=== PATIENT | female | born 1955 | race Caucasian/White ===

== ENCOUNTER 2019-12-08 10:54 | Outpatient (CLI) | payer MEDICARE, SELFPAY ==
[2019-12-08 12:16] LABS: Add Urine Microscopic? NO; Appearance Urine Clear (Clear); Bilirubin Urine Negative (Negative); Blood Urine Negative (Negative); Color Urine Colorless (Yellow); Glucose Urine UA Negative (Negative); Ketones Urine Negative (Negative); Leukocyte Esterase Ur Negative LEU/UL (NEGATIVE); Nitrate Urine Negative (Negative); Protein Urine Negative (Negative); Specific Grav Ur 1.005 (1.001-1.035); Urobilinogen Urine Negative mg/dL (<2.0)
[2019-12-08 12:18] LABS: Basophils Percent Auto 0.6 % (0.2-1.2); Eosinophils Absolute Auto 0.1 K/mm3 (0-0.3); Eosinophils Percent Auto 1.9 % (0-4.4); Hemoglobin 14.1 g/dL (12.0-15.0); Immature Granulocyte Absolute 0.01 K/mm3 (0.00-0.031); Immature Granulocyte Percent A 0.2 % (0-0.5); Lymphocytes Absolute Auto 1.76 K/mm3 (0.9-3.2); Lymphocytes Percent Auto 27.9 % (18.3-44.2); Mean Corpuscular HGB Conc 32.8 g/dl (32-36); Mean Corpuscular Hemoglobin 29.6 pg (26-34); Mean Corpuscular Volume 90.3 fl (80-100); Monocytes Absolute Auto 0.5 K/mm3 (0.1-0.6); Monocytes Percent Auto 7.5 % (2.6-8.5); Neutrophils Absolute Auto 3.9 K/mm3 (1.3-6.7); Neutrophils Percent Auto 61.9 % (45.5-73.1); Platelet Count Result 219 k/mm3 (150-375); Red Blood Count 4.76 M/mm3 (4.2-5.4); Red Cell Distribution Width 12.3 % (11.5-14.5); White Blood Count 6.3 K/mm3 (4.5-10.0)
[2019-12-08 12:23] LABS: Alanine Aminotransferase 21 U/L (4-35); Albumin Level 4.5 g/dL (3.5-5.1); Alkaline Phosphatase 59 U/L (38-126); Aspartate Amino Transferase 31 U/L (14-36); Bilirubin,Total 0.2 mg/dL (0.2-1.3); Blood Urea Nitrogen 24 mg/dL (7-17); Calcium 9.4 mg/dL (8.4-10.2); Carbon Dioxide 28 mmol/L (22-30); Chloride 105 mmol/L (98-107); Creatine Kinase 101 U/L (30-135); Estimated Glomerular Filt Rate > 60; Glucose 89 mg/dL (65-105); Potassium 4.4 mmol/L (3.4-5.0); Sodium 140 mmol/L (137-145)
[2019-12-08 12:53] LABS: Thyroid Stimulating Hormone 0.751 uIU/mL (0.465-4.680)
== END 2019-12-08 10:55 | disposition home or self-care (01) ==
LOC: ANHLAB 10:56
PROVIDERS: PCP Family Medicine; Visit Provider Physician Assistant
DX: E78.00 Pure hypercholesterolemia, unspecified (principal); R52 Pain, unspecified; M62.81 Muscle weakness (generalized); R53.83 Other fatigue
CPT/HCPCS: 36415; 80053; 81003; 82550; 84443; 85025

== ENCOUNTER 2019-12-11 08:00 | Outpatient (NON) | payer MEDICARE, SELFPAY ==
[2019-12-11 18:54] LABS: SARS-CoV-2 RNA PCR Negative
== END 2020-07-30 10:41 | disposition home or self-care (01) ==
PROVIDERS: PCP Family Medicine; Visit Provider Physician Assistant
DX: R09.89 Other specified symptoms and signs involving the circulatory and respiratory systems (principal); Z20.828 Contact with and (suspected) exposure to other viral communicable diseases
CPT/HCPCS: 87635; C9803; U0003

== ENCOUNTER 2019-12-25 00:26 | Outpatient (CLI) | payer MEDICARE, SELFPAY ==
[2019-12-25 18:41] LABS: SARS-CoV-2 RNA PCR Negative
== END 2019-12-25 00:27 | disposition home or self-care (01) ==
LOC: ANHCOVIDDT 00:26
PROVIDERS: PCP Family Medicine; Visit Provider Internal Medicine Gastroenterology
DX: Z01.812 Encounter for preprocedural laboratory examination (principal); Z11.59 Encounter for screening for other viral diseases
CPT/HCPCS: 87635; C9803; U0003

== ENCOUNTER 2019-12-27 02:04 | Day surgery (SDC) | payer MEDICARE, SELFPAY ==
[2019-12-21 13:38] VITALS: BMI 24.5
[2019-12-27 09:04] VITALS: BP 119/64; PULSE 56; RESP 16; TEMP 36.3; O2SAT 100; BMI 24.6
[2019-12-27] MEDS: LACTATED RINGERS 1,000 ML 150 ML IV CONT (09:12)
--- NOTE | 2019-12-27 09:23 | P.HP_ITS ---
History of Present Illness History of Present Illness Consent: Risks, benefits, and alternatives have been discussed and questions answered. Patient agrees to proceed with procedure. Chief complaint: Hx Colon Polyps Narrative: Kandice Jc is a 64 year old female With a history of colon polyps and a family history of colon cancer [facility] Family History Family History (Updated 05/17/17 @ 13:34 by DOCTOR UNKNOWN) Mother Carcinoma of colon Social History Social History Smoking status: Never smoker Alcohol intake: never Substance use: never Substance use type: does not use Meds Home Medications and Allergies Home Medications Medication Instructions Recorded Confirmed Type cetirizine 10 mg tablet 10 mg PO DAILY PRN tablet 07/05/19 12/21/19 History mupirocin 2 % topical ointment 1 applic TOPICAL PRN PRN 07/05/19 12/21/19 History fluticasone propionate 50 2 spray NASAL DAILY #54.6 ml 08/17/19 12/21/19 Rx mcg/actuation nasal spray,suspension atorvastatin 10 mg tablet 10 mg PO DAILY #90 tablet 09/28/19 12/21/19 Rx lysine [L-Lysine] 500 mg PO DAILY 12/21/19 12/21/19 History yy-qv-UR-vit N-ssaee-rhf-coQ10 1 cap PO DAILY 12/21/19 12/21/19 History [Daily Multivitamin] omega 5-pzb-yfq-fish oil [Fish Oil] 1 cap PO DAILY 12/21/19 12/21/19 History sertraline 50 mg PO DAILY 12/21/19 12/21/19 History valacyclovir 1,000 mg PO PRN PRN 12/21/19 12/21/19 History Allergies Allergy/AdvReac Type Severity Reaction Status Date / Time Penicillins Allergy Unknown Hives Verified 12/27/19 09:02 Sulfa (Sulfonamide Allergy Unknown Hives Verified 12/27/19 09:02 Antibiotics) lactose AdvReac Severe explosive Verified 12/27/19 09:02 diarrhea Vital Signs Vital Signs - 24 hr 12/27/19 09:04 Temperature 36.3 C L Pulse Rate 56 L Respiratory Rate 16 Blood Pressure 119/64 Pulse Oximetry 100 Exam 2 Resp: Auscultation: clear to auscultation bilaterally Cardio: Rate: regular rate Rhythm: regular rhythm GI: GI Palp: Yes Soft to palpation and No Tenderness to palpation present (GI) Assessment and Plan Assessment and plan (1) Personal history of colonic polyps: Code(s): Z86.010 - Personal history of colonic polyps Status: Acute Assessment and Plan: Colonoscopy with possible biopsy or polypectomy or cautery or injection of substances.
--- NOTE | 2019-12-27 09:43 | WPDANESEPPF ---
Anes - Initial Pre Proc Eval Procedure: Operation Date: 12/27/19 09:30 Proposed Procedures p Screening Colonoscopy - Bridger Rangel MD Date/Time: 12/27/19 09:43 Surgeon: Bridger Rangel MD Pre Op Diagnosis: Hx Colon Polyps Patient Data Age: 64 Gender: F Height: 5 ft 4 in Weight: 65.1 kg Last Vital Signs Temp 97.3 F L 12/27/19 09:04 Pulse 56 L 12/27/19 09:04 Resp 16 12/27/19 09:04 BP 119/64 12/27/19 09:04 Pulse Ox 100 12/27/19 09:04 Allergies Allergy/AdvReac Type Severity Reaction Status Date / Time Penicillins Allergy Unknown Hives Verified 12/27/19 09:02 Sulfa (Sulfonamide Allergy Unknown Hives Verified 12/27/19 09:02 Antibiotics) lactose AdvReac Severe explosive Verified 12/27/19 09:02 diarrhea Home Medications Medication Instructions Recorded Confirmed Type cetirizine 10 mg tablet 10 mg PO DAILY PRN tablet 07/05/19 12/21/19 History mupirocin 2 % topical ointment 1 applic TOPICAL PRN PRN 07/05/19 12/21/19 History fluticasone propionate 50 2 spray NASAL DAILY #54.6 ml 08/17/19 12/21/19 Rx mcg/actuation nasal spray,suspension atorvastatin 10 mg tablet 10 mg PO DAILY #90 tablet 09/28/19 12/21/19 Rx lysine [L-Lysine] 500 mg PO DAILY 12/21/19 12/21/19 History xh-az-MZ-vit Q-gfsnr-mpa-coQ10 1 cap PO DAILY 12/21/19 12/21/19 History [Daily Multivitamin] omega 7-vre-yul-fish oil [Fish Oil] 1 cap PO DAILY 12/21/19 12/21/19 History sertraline 50 mg PO DAILY 12/21/19 12/21/19 History valacyclovir 1,000 mg PO PRN PRN 12/21/19 12/21/19 History Patient hx anesthesia problems: none Family hx anesthesia problems: none PMFSH Family History Family History (Updated 05/17/17 @ 13:34 by DOCTOR UNKNOWN) Mother Carcinoma of colon Social History Social History Smoking status: Never smoker Alcohol intake: never Substance use: never Substance use type: does not use Anes - Eval Final PreProcedure Day of Procedure 12/27/19 09:43 Patient weight: normal Heart: regular rate and rhythm Lungs: clear to auscultation Airway: Mallampati scale class II Neurological: alert and oriented Last oral intake: >/= 8 hours ASA classification: II Emergent: no Anesthetic plan: proceed Anesthesia type and monitoring: general GIVS and standard monitoring Informed Consent: The patient's anesthetic plan and its attendant risks and benefits were discussed with the patient/family/POA. Questions were solicited and answers provided to the satisfaction of the patient/family/POA.
[2019-12-27 10:07] VITALS: BP 83/54; PULSE 72; RESP 16; O2SAT 93
[2019-12-27 10:17] VITALS: BP 99/71; PULSE 62; RESP 16; O2SAT 98
[2019-12-27 10:27] VITALS: BP 104/70; PULSE 64; RESP 16; O2SAT 98
== END 2019-12-27 10:49 | disposition home or self-care (01) ==
PROVIDERS: PCP Family Medicine; Visit Provider Internal Medicine Gastroenterology
PROC: 0DJD8ZZ Inspection of Lower Intestinal Tract, Via Natural or Artificial Opening Endoscopic (ICD-10-PCS; CPT 45378; principal; 2019-12-27 09:30)
DX: Z12.11 Encounter for screening for malignant neoplasm of colon (principal); K64.8 Other hemorrhoids; Z86.010 Personal history of colon polyps; Z80.0 Family history of malignant neoplasm of digestive organs
CPT/HCPCS: G0105; J2704; J7120

== ENCOUNTER 2020-01-24 13:54 | Outpatient (CLI) | payer MEDICARE, SELFPAY ==
--- NOTE | ~2020-01-24 | MM_ITS ---
EXAMINATION: MM screening zarina BI w vazquez HISTORY: Screening TECHNIQUE: Craniocaudal and mediolateral oblique 3-D tomosynthesis images were obtained and synthetic 2-D images were generated. CAD analysis was submitted and interpreted. COMPARISON: Comparison to multiple prior studies sequentially, with oldest reviewed study dated 05/16. BREAST PARENCHYMAL COMPOSITION: There are scattered areas of fibroglandular density. FINDINGS: There are developing asymmetries in the upper central aspect of the right breast. The left breast is stable. There are changes of implant removal. IMPRESSION: 1. Developing right breast asymmetries. 2. Additional mammographic views and possible breast ultrasound are recommended. BI-RADS Category 0: Incomplete: Needs additional imaging evaluation. Reviewed, dictated and finalized at location A. IMPRESSION: 1. Developing right breast asymmetries. 2. Additional mammographic views and possible breast ultrasound are recommended . BI-RADS Category 0: Incomplete: Needs additional imaging evaluation.
== END 2020-01-24 13:55 | disposition home or self-care (01) ==
LOC: ANHIMG 13:57
PROVIDERS: PCP Family Medicine; Visit Provider Family Medicine
DX: Z12.31 Encounter for screening mammogram for malignant neoplasm of breast (principal); R92.8 Other abnormal and inconclusive findings on diagnostic imaging of breast
CPT/HCPCS: 77063; 77067

== ENCOUNTER 2020-02-05 11:25 | Outpatient (CLI) | payer MEDICARE, SELFPAY ==
--- NOTE | ~2020-02-05 | MMUS_ITS ---
EXAMINATION: MM diagnostic mammo unilat RT, US breast RT limited HISTORY: Focal asymmetry of the right breast on screening mammogram, history of breast implant remova l. TECHNIQUE: Additional 3-D tomosynthesis images of the right breast were performed and synthetic 2-D i mages were generated. CAD analysis was submitted and interpreted. High resolution limited right breas t ultrasound was performed. COMPARISON: 01/24/2020, 01/04/2019, 11/19/2016 FINDINGS: MAMMOGRAPHIC FINDINGS: Focal asymmetry in the central right breast persists but is less prominent with spot compression. No suspicious mass, calcification, or architectural distortion are identified. ULTRASOUND: There is no evidence of focal abnormal solid or cystic lesion in the vicinity of the right breast foc al asymmetry. IMPRESSION: 1. Probably benign focal asymmetry of the right breast. 2. Recommend 6 month follow-up right diagnostic mammogram with possible ultrasound. BI-RADS category 3, probably benign findings. Reviewed, dictated and finalized at location A. IMPRESSION: 1. Probably benign focal asymmetry of the right breast. 2. Recommend 6 month follow-up right diagnostic mammogram with possible ultraso und. BI-RADS category 3, probably benign findings.
== END 2020-02-05 11:26 | disposition home or self-care (01) ==
LOC: ANHIMG 11:27
PROVIDERS: PCP Family Medicine; Visit Provider Physician Assistant
DX: R92.8 Other abnormal and inconclusive findings on diagnostic imaging of breast (principal)
CPT/HCPCS: 76642; 77065

== ENCOUNTER 2020-05-24 11:10 | Outpatient (NON) | payer MEDICARE, SELFPAY ==
[2020-05-24 23:21] LABS: SARS-CoV-2 RNA PCR Negative
== END 2020-05-24 11:11 ==
PROVIDERS: Visit Provider Family Medicine
DX: R05 Cough (principal); R51.9 Headache, unspecified; Z20.828 Contact with and (suspected) exposure to other viral communicable diseases
CPT/HCPCS: 87635; C9803; U0003

== ENCOUNTER 2020-10-17 12:27 | Outpatient (CLI) | payer MEDICARE, SELFPAY ==
--- NOTE | ~2020-10-17 | MMUS_ITS ---
EXAMINATION: MM diagnostic zarina BI w vazquez, US axilla LT HISTORY: Follow-up right breast asymmetry. Palpable left axillary abnormality. Indication 08/22/2020. TECHNIQUE: Additional 3-D tomosynthesis images of the breasts were performed and synthetic 2-D images were generated. CAD analysis was submitted and interpreted. High resolution LEFT axillary ultrasound was performed. COMPARISON: Comparison to multiple prior studies sequentially, with oldest reviewed study dated 05/16. BREAST PARENCHYMAL COMPOSITION: The breasts are heterogenously dense, which may obscure small masses. FINDINGS: MAMMOGRAPHIC FINDINGS: The breasts are stable. No new masses, calcifications or architectural distortion in either breast to suggest malignancy. There is architectural distortion in both breasts, consistent with previous impl ant removal and breast reduction surgery. ULTRASOUND: Limited left axillary ultrasound: There are normal left axillary lymph nodes with fatty hilum, larges t measuring 9 mm. No suspicious masses to suggest malignancy. IMPRESSION: 1. No evidence for malignancy in either breast. 2. Routine yearly screening mammogram and regular clinical breast examination are recommended. BI-RADS Category 2: Benign finding(s). Reviewed, dictated and finalized at location A. IMPRESSION: 1. No evidence for malignancy in either breast. 2. Routine yearly screening mammogram and regular clinical breast examination a re recommended. BI-RADS Category 2: Benign finding(s).
== END 2020-10-17 12:28 | disposition home or self-care (01) ==
LOC: ANHIMG 12:29
PROVIDERS: PCP Family Medicine; Visit Provider Nurse Practitioner Family
DX: N63.10 Unspecified lump in the right breast, unspecified quadrant (principal); N63.20 Unspecified lump in the left breast, unspecified quadrant; R92.8 Other abnormal and inconclusive findings on diagnostic imaging of breast; M79.89 Other specified soft tissue disorders
CPT/HCPCS: 76882; 77062; 77066; G0279

== ENCOUNTER 2021-09-30 12:39 | Outpatient (CLI) | payer MEDICARE, SELFPAY ==
--- NOTE | ~2021-09-30 | XR_ITS ---
EXAM: XR_CERV2-3V_CR HISTORY: M79.601 - Pain in right arm, NKI COMPARISON: None available FINDINGS: Craniocervical association and atlantoaxial joint are normal. No prevertebral soft tissue swelling. 3 mm anterolisthesis of C3 on C4. 2 mm anterolisthesis of C7 on T1. Severe disc space narro wing at C4-5 and C5-6, with marginal osteophytosis. Moderate narrowing at C6-7. Vertebral body height s maintained. Sclerosis of the mid and lower cervical spine facets. IMPRESSION: Severe degenerative disc disease C4-5 and C5-6. Multilevel degenerative listheses. Multilevel facet a rthropathy. Reviewed, dictated and finalized at location K. IMPRESSION: Severe degenerative disc disease C4-5 and C5-6. Multilevel degenerative listhes es. Multilevel facet arthropathy.
== END 2021-09-30 12:40 | disposition home or self-care (01) ==
LOC: ANHIMG 12:44
PROVIDERS: PCP Family Medicine; Visit Provider Nurse Practitioner Family
DX: M79.601 Pain in right arm (principal); M50.322 Other cervical disc degeneration at C5-C6 level
CPT/HCPCS: 72040

== ENCOUNTER 2021-10-07 07:37 | Outpatient (CLI) | payer MEDICARE, SELFPAY ==
--- NOTE | ~2021-10-07 | MR_ITS ---
EXAMINATION: MR cervical spine wo con DATE: 10/07/2021 08:16 INDICATION: Cervical radiculopathy. TECHNIQUE: Magnetic resonance imaging (MRI) of the cervical spine was performed without intravenous c ontrast. Sequences included sagittal T2-weighted FSE, sagittal T2-weighted FS FSE, sagittal T1-weight ed FSE, axial MERGE, and axial T2-weighted FSE. COMPARISON: Cervical spine radiographs 09/30/2021 FINDINGS: There is 5 degrees levocurvature of cervicothoracic spine. There is kyphosis of cervical sp ine. There is 2 mm anterolisthesis of C3 on C4 and 2 mm retrolisthesis of C4 on C5, C5 on C6, and C6 on C7. There is 2 mm anterolisthesis of C7 on T1. There is mild chronic anterior wedging of T1 verteb ral body. There is mildly decreased disc height at C3-C4 and severely decreased disc height from C4-C 5 through C6-C7. The following disc levels are specifically discussed: C2-C3: The disc does not extend beyond the endplate margin. There is no uncovertebral joint osteoarth ritis. There is severe right facet joint osteoarthritis. There is mild right neural foraminal stenosi s. There is no central canal stenosis. C3-C4: The disc does not extend beyond the endplate margin. There is mild right and moderate left unc overtebral joint osteoarthritis. There is mild right facet joint osteoarthritis. There is ankylosis o f left facet joint with moderate hypertrophy. There is moderate left neural foraminal stenosis. There is no central canal stenosis. C4-C5: The disc is bulging. There is severe bilateral uncovertebral joint osteoarthritis. There is mi ld bilateral facet joint osteoarthritis. There is moderate bilateral neural foraminal stenosis. There is mild central canal stenosis with ventral indentation of the spinal cord. C5-C6: The disc is bulging. There is severe bilateral uncovertebral joint osteoarthritis. There is no facet joint osteoarthritis. There is moderate bilateral neural foraminal stenosis. There is mild casandra tral canal stenosis with ventral indentation of the spinal cord. C6-C7: The disc is bulging. There is severe bilateral uncovertebral joint osteoarthritis. There is mi ld right and moderate left facet joint osteoarthritis. There is moderate bilateral neural foraminal s tenosis. There is mild central canal stenosis with ventral indentation of the spinal cord. C7-T1: The disc does not extend beyond the endplate margin. There is no uncovertebral joint osteoarth ritis. There is severe bilateral facet joint osteoarthritis. There is mild bilateral neural foraminal stenosis. There is no central canal stenosis. IMPRESSION: 1. Severe cervical spondylosis. Reviewed, dictated and finalized at location A.
== END 2021-10-07 07:38 | disposition home or self-care (01) ==
LOC: ANHIMG 07:41
PROVIDERS: PCP Family Medicine; Visit Provider Nurse Practitioner Family
DX: M50.322 Other cervical disc degeneration at C5-C6 level (principal); M79.601 Pain in right arm; M47.22 Other spondylosis with radiculopathy, cervical region
CPT/HCPCS: 72141

== ENCOUNTER 2021-11-12 09:05 | Outpatient (CLI) | payer MEDICARE, SELFPAY ==
--- NOTE | ~2021-11-12 | XR_ITS ---
EXAMINATION: XR sacroiliac joints min 3V, XR lumbar spine 2-3V DATE: 11/12/2021 09:36 INDICATION: Polyarthralgia. FRENCH. TECHNIQUE: Anteroposterior, lateral and cone-down lateral lumbosacral views of the lumbar spine were obtained]. COMPARISON: None. FINDINGS: Lumbar spine: Alignment is normal. Vertebral body heights are normal. Mild disc height loss at L2-L3. Mild degenera tive endplate changes without disc height loss at L3-L4 and L4-L5. Mild to moderate lumbar facet oste oarthritis. No pars intra-articular is defects. Sacroiliac joints: Sacral arches are intact. No fracture. Polyarticular joint spaces are normal with no erosions or suba rticular sclerosis. A few phleboliths in the left hemipelvis. Mild osteoarthritis at the left hip wit h minimal superomedial predominant nonuniform joint space narrowing. IMPRESSION: 1. Mild lumbar spondylosis. 2. Normal bilateral sacralized joints. Reviewed, dictated and finalized at location B. IMPRESSION: 1. Mild lumbar spondylosis. 2. Normal bilateral sacralized joints.
--- NOTE | ~2021-11-12 | XR_ITS ---
XR foot LT 2V DATE: 11/12/2021 09:36 INDICATION: Polyarthralgia. Left foot pain. TECHNIQUE: AP and lateral views COMPARISON: None FINDINGS: There is slight plantar calcaneal enthesopathy. There is mild osteoarthritis of the first metatarsophalangeal joint and some interphalangeal joints. No fracture, dislocation, periosteal reaction or bone destruction or erosive change is noted. IMPRESSION: Slight plantar calcaneal enthesopathy Mild osteoarthritis Reviewed, dictated and finalized at location A.
--- NOTE | ~2021-11-12 | XR_ITS ---
XR foot RT 2V DATE: 11/12/2021 09:36 INDICATION: Polyarthralgia. Right foot pain. TECHNIQUE: AP and lateral views COMPARISON: None FINDINGS: There is mild plantar and posterior calcaneal enthesopathy. There is mild osteoarthritis at the first metatarsophalangeal and some interphalangeal joints. No erosive change is evident. No fracture or dislocation, periosteal reaction or bone destruction is detected. IMPRESSION: Mild osteoarthritis Mild plantar and posterior calcaneal enthesopathy Reviewed, dictated and finalized at location A.
== END 2021-11-12 09:06 | disposition home or self-care (01) ==
PROVIDERS: PCP Family Medicine; Visit Provider Internal Medicine
DX: M19.072 Primary osteoarthritis, left ankle and foot (principal); M19.071 Primary osteoarthritis, right ankle and foot; M51.36 Other intervertebral disc degeneration, lumbar region; M77.32 Calcaneal spur, left foot; M77.31 Calcaneal spur, right foot; M47.896 Other spondylosis, lumbar region
CPT/HCPCS: 72100; 72202; 73620

== ENCOUNTER 2022-02-20 09:28 | Outpatient (CLI) | payer MEDICARE, OTHER, SELFPAY ==
--- NOTE | ~2022-02-20 | MM_ITS ---
EXAMINATION: MM screening zairna BI w vazquez HISTORY: Screening mammogram TECHNIQUE: Craniocaudal and mediolateral oblique 3-D tomosynthesis images were obtained and synthetic 2-D images were generated. CAD analysis was submitted and interpreted. COMPARISON: 10/17/2020 bilateral diagnostic mammogram 02/01/2020 diagnostic right mammogram and limited right breast ultrasound 01/24/2020, 12/31/2018 bilateral screening mammogram examinations BREAST PARENCHYMAL COMPOSITION: There are scattered areas of fibroglandular density. FINDINGS: Stable architectural distortion since 12/31/2018; history of bilateral implant removal and b reast reduction. There is no evidence of suspicious mass, calcification, or architectural distortion to suggest malignancy in either breast. There has been no suspicious interval change. IMPRESSION: 1. Stable bilateral architectural distortion. No mammographic evidence of malignancy. 2. Recommend routine screening mammography in one year. BI-RADS Category 2: Benign finding(s). Reviewed, dictated and finalized at location A. IMPRESSION: 1. Stable bilateral architectural distortion. No mammographic evidence of malig alma. 2. Recommend routine screening mammography in one year. BI-RADS Category 2: Benign finding(s).
== END 2022-02-20 09:29 | disposition home or self-care (01) ==
LOC: ANHIMG 09:31
PROVIDERS: PCP Family Medicine; Visit Provider Family Medicine
DX: Z12.31 Encounter for screening mammogram for malignant neoplasm of breast (principal)
CPT/HCPCS: 77063; 77067

== ENCOUNTER 2022-05-04 09:44 | Outpatient (CLI) | payer MEDICARE, OTHER, SELFPAY ==
--- NOTE | ~2022-05-04 | DEXA_ITS ---
Bone Density Report Name: LADONNA MCCALL I Age: 67 Sex: Female Ethnicity: White Date of : 1955 Indication: postmenopausal; screening for osteoporosis; height loss; Referring Provider: RO LOUIS Study: Bone densitometry was performed. Exam Date: May 04, 2022 Accession number: [id number] Bone Density: Region BMD T-score Z-score Classification AP Spine(L1-L4) 0.821 -2.1 -0.1 Osteopenia Femoral Neck (Left) 0.700 -1.3 0.3 Osteopenia Total Hip (Left) 0.855 -0.7 0.7 Normal Femoral Neck (Right) 0.717 -1.2 0.5 Osteopenia Total Hip (Right) 0.883 -0.5 0.9 Normal Total Hip Mean 0.869 -0.6 0.8 Normal World Health Organization criteria for BMD impression classify patients as: Normal (T-score at or above -1.0), Osteopenia (T-score between -1.0 and -2.5), or Osteoporosis (T-score at or below -2.5). 10-year Fracture Risk(1): Major Osteoporotic Fracture 9.3% Hip Fracture 1.0% Reported Risk Factors: [place] (), Neck BMD=0.700, BMI=26.3 (1) FRAX(R) Version 3.08. Fracture probability calculated for an untreated patient. Fracture probability may be lower if the patient has received treatment. Clinical Information Provided by Patient: Has used the following medications: Vitamin D, Calcium Patient maximum height was 64 Menopause Age: 51 Drinks caffeinated beverages Onset of menses at age 16 Number of children 2 Impression: The patient has low bone mass, based on the Total Spine T-score. The patient has an estimated ten-year risk of hip fracture of 1% and an estimated ten-year risk of major fracture of 9.3%, based on the WHO FRAX algorithm. Discussion: BONE DENSITY IS LOW AT ONE OR MORE SKELETAL SITES. This patient's lowest T-score is low at one or more skeletal sites. It meets the World Health Organization's (WHO) criteria for ?low bone mass? (T-score between -1.0 and -2.5). The patient's 10-year risk of fracture as calculated by FRAX is less than the threshold where pharmacological therapy is recommended by the National Osteoporosis Foundation (NOF). However, all treatment decisions require clinical judgment and consideration of individual patient factors, including patient preferences, comorbidities, previous drug use, risk factors not captured in the FRAX model (e.g., frailty, falls, vitamin D deficiency, increased bone turnover, interval significant decline in bone density) and possible under or overestimation of fracture risk by FRAX. The patient should follow a healthful lifestyle (good nutrition with adequate calcium and vitamin D, and appropriate weight-bearing exercise). Follow-Up: Consider repeating this study in 2 to 3 years to reassess this patient's status, or sooner if there is some new clinical indication. Reported by: ROSA on 05/04/2022 10:07:
--- NOTE | ~2022-05-04 | XR_ITS ---
EXAM: XR hand RT 2V, XR hand LT 2V DATE: 05/04/2022 10:35 (accession [id number]), 05/04/2022 10:36 (accession [id number]) HISTORY: POLYARTHRALGIA . COMPARISON: None available. FINDINGS: Decreased mineralization. No fracture or dislocation. No lytic or blastic lesion. Mild ost eoarthritic changes, most notably in the DIP joints of the digits. No erosion or periosteal change. S oft tissues within normal limits. IMPRESSION: Mild polyarticular osteoarthritis. Reviewed, dictated and finalized at location K. 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
== END 2022-05-04 09:45 | disposition home or self-care (01) ==
PROVIDERS: PCP Family Medicine; Referring Provider Internal Medicine; Visit Provider Physician Assistant
DX: Z78.0 Asymptomatic menopausal state (principal); M19.041 Primary osteoarthritis, right hand; M19.042 Primary osteoarthritis, left hand; M85.88 Other specified disorders of bone density and structure, other site; M85.852 Other specified disorders of bone density and structure, left thigh; M85.851 Other specified disorders of bone density and structure, right thigh
CPT/HCPCS: 73120; 77080

== ENCOUNTER 2023-01-26 08:00 | Outpatient (NON) | payer MEDICARE, OTHER, SELFPAY | END 2023-01-26 08:01 | disposition home or self-care (01) | LOC: ANHLAB 01-27 12:15 | PROVIDERS: PCP Family Medicine; Visit Provider Nurse Practitioner | DX: L57.0 Actinic keratosis (principal) | CPT/HCPCS: 88305 ==

== ENCOUNTER 2023-05-28 08:56 | Outpatient (CLI) | payer MEDICARE, OTHER, SELFPAY ==
--- NOTE | ~2023-05-28 | MM_ITS ---
EXAMINATION: MM screening zarina BI w vazquez HISTORY: Screening TECHNIQUE: Craniocaudal and mediolateral oblique 3-D tomosynthesis images were obtained and synthetic 2-D images were generated. CAD analysis was submitted and interpreted. COMPARISON: Comparison to multiple prior studies sequentially, with oldest reviewed study dated 01/2017. BREAST PARENCHYMAL COMPOSITION: Breast composed of scattered areas of fibroglandular density FINDINGS: There is distortion in both breasts from previous implant removal. No new masses, calcifica tions or architectural distortion. There has been no suspicious interval change. IMPRESSION: 1. Stable bilateral mammogram without evidence for malignancy. 2. Recommend routine screening mammography in one year. BI-RADS Category 2: Benign finding(s). Reviewed, dictated and finalized at location A. 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
== END 2023-05-28 08:57 | disposition home or self-care (01) ==
LOC: ANHIMG 09:00
PROVIDERS: PCP Family Medicine; Visit Provider Family Medicine
DX: Z12.31 Encounter for screening mammogram for malignant neoplasm of breast (principal)
CPT/HCPCS: 77063; 77067

== ENCOUNTER 2023-06-09 00:05 | Day surgery (SDC) | payer MEDICARE, OTHER, SELFPAY ==
[2023-05-18 14:58] VITALS: BMI 25.8
--- NOTE | 2023-06-08 11:19 | SUR.PREOP ---
Patient called regarding upcoming procedure. Reviewed preop instructions, appointment times, and procedure prep.
[2023-06-09 07:15] VITALS: BP 106/62; PULSE 67; RESP 16; TEMP 36.5; O2SAT 100; BMI 25.3
[2023-06-09] MEDS: LACTATED RINGERS 1,000 ML 150 ML IV CONT (07:24)
--- NOTE | 2023-06-09 07:45 | PM.HPGS ---
History of Present Illness History of Present Illness Consent: Risks, benefits, and alternatives have been discussed and questions answered. Patient agrees to proceed with procedure. Chief complaint: hx colon polyps Narrative: Kandice Jc is a 68 year old female Referred for colon cancer screening. She had an adenomatous polyp removed about 6 years ago. She also has a family history of colon cancer, Her mother.. Review of Systems Review of Systems: All systems reviewed & are unremarkable except as noted in HPI and below PMFSH Family History Family History Mother Carcinoma of colon Social History Social History Smoking status: Never smoker Second hand tobacco smoke exposure: No Alcohol intake: never Substance use: never Substance use type: does not use Living arrangements: with family Occupation/Education: retired Gender identity (if verbalized by the patient): Female Sexual Orientation (if Verbalized by the Patient): Straight or Heterosexual Spiritual care concerns: No Meds Home Medications and Allergies Home Medications Medication Instructions Recorded Confirmed Type cetirizine 10 mg tablet (Zyrtec) 10 mg PO DAILY PRN allergies 07/05/19 06/09/23 History lysine 500 mg tablet (L-Lysine) 500 mg PO DAILY 12/21/19 06/09/23 History kumoqhks-wzp-AZ 200 mcg-vit K 100 1 cap PO DAILY 12/21/19 06/09/23 History mcg-lycop 500 tvl-zcqkit-H34 capsule (Daily Multivitamin) valacyclovir 500 mg tablet 1,000 mg PO PRN PRN Cold Sores 12/21/19 06/09/23 History atorvastatin 10 mg tablet See Rx Instructions .Route 09/11/22 06/09/23 Rx .COMPLEX #90 tabs sertraline 50 mg tablet 50 mg PO DAILY #90 tabs 11/23/22 06/09/23 Rx fluticasone propionate 50 2 spray intranasal DAILY #54.6 mL 12/28/22 06/09/23 Rx mcg/actuation nasal spray,suspension (Allergy Relief (fluticasone)) triamcinolone acetonide 0.5 % 1 applic topical BID #15 grams 03/02/23 06/09/23 Rx topical cream Allergies Allergy/AdvReac Type Severity Reaction Status Date / Time Penicillins Allergy Unknown Hives Verified 06/09/23 07:14 Sulfa (Sulfonamide Allergy Unknown Hives Verified 06/09/23 07:14 Antibiotics) lactose AdvReac Severe explosive Verified 06/09/23 07:14 diarrhea Vital Signs Vital Signs - 24 hr 06/09/23 07:15 Temperature 36.5 C Pulse Rate 67 Respiratory Rate 16 Blood Pressure 106/62 Pulse Oximetry 100 Oxygen Delivery Room Air Exam Resp: Auscultation: clear to auscultation bilaterally Cardio: Rate: regular rate Rhythm: regular rhythm GI: GI Palp: Yes Soft to palpation and No Tenderness to palpation present (GI) Assessment and Plan Assessment and plan (1) Colon cancer screening: Code(s): Z12.11 - Encounter for screening for malignant neoplasm of colon Status: Acute Assessment and Plan: Colonoscopy with possible biopsy or polypectomy or cautery or injection of substances.
--- NOTE | 2023-06-09 07:51 | WPDANESEPPF ---
Anes - Initial Pre Proc Eval Procedure: Operation Date: 06/09/23 08:30 Proposed Procedures p Colonoscopy - Bridger Rangel MD Date/Time: 06/09/23 07:51 Surgeon: Bridger Rangel MD Pre Op Diagnosis: hx colon polyps Patient Data Age: 68 Gender: F Height: 1.57 m Weight: 62.8 kg Last Vital Signs Temp 97.7 F 06/09/23 07:15 Pulse 67 06/09/23 07:15 Resp 16 06/09/23 07:15 BP 106/62 06/09/23 07:15 Pulse Ox 100 06/09/23 07:15 O2 Del Method Room Air 06/09/23 07:15 Allergies Allergy/AdvReac Type Severity Reaction Status Date / Time Penicillins Allergy Unknown Hives Verified 06/09/23 07:14 Sulfa (Sulfonamide Allergy Unknown Hives Verified 06/09/23 07:14 Antibiotics) lactose AdvReac Severe explosive Verified 06/09/23 07:14 diarrhea Home Medications Medication Instructions Recorded Confirmed Type cetirizine 10 mg tablet (Zyrtec) 10 mg PO DAILY PRN allergies 07/05/19 06/09/23 History lysine 500 mg tablet (L-Lysine) 500 mg PO DAILY 12/21/19 06/09/23 History [id number] 200 mcg-vit K 100 1 cap PO DAILY 12/21/19 06/09/23 History mcg-lycop 500 [id number] capsule (Daily Multivitamin) valacyclovir 500 mg tablet 1,000 mg PO PRN PRN Cold Sores 12/21/19 06/09/23 History atorvastatin 10 mg tablet See Rx Instructions .Route 09/11/22 06/09/23 Rx .COMPLEX #90 tabs sertraline 50 mg tablet 50 mg PO DAILY #90 tabs 11/23/22 06/09/23 Rx fluticasone propionate 50 2 spray intranasal DAILY #54.6 mL 12/28/22 06/09/23 Rx mcg/actuation nasal spray,suspension (Allergy Relief (fluticasone)) triamcinolone acetonide 0.5 % 1 applic topical BID #15 grams 03/02/23 06/09/23 Rx topical cream Patient hx anesthesia problems: none Family hx anesthesia problems: none Results Review: All pre-operative results and documents have been reviewed as part of the pre-operative evaluation. [facility] Family History Family History Mother Carcinoma of colon Social History Social History Smoking status: Never smoker Second hand tobacco smoke exposure: No Alcohol intake: never Substance use: never Substance use type: does not use Living arrangements: with family Occupation/Education: retired Gender identity (if verbalized by the patient): Female Sexual Orientation (if Verbalized by the Patient): Straight or Heterosexual Spiritual care concerns: No Anes - Eval Final PreProcedure Day of Procedure 06/09/23 07:51 Patient weight: normal Heart: regular rate and rhythm Lungs: clear to auscultation Airway: Mallampati scale class II Neurological: alert and oriented Last oral intake: >/= 8 hours ASA classification: II Emergent: no Anesthetic plan: proceed Anesthesia type and monitoring: general GIVS and standard monitoring Results Review: All pre-operative results and documents have been reviewed as part of the pre-operative evaluation. Informed Consent: The patient's anesthetic plan and its attendant risks and benefits were discussed with the patient/family/POA. Questions were solicited and answers provided to the satisfaction of the patient/family/POA.
[2023-06-09 08:42] VITALS: BP 84/55; PULSE 65; RESP 24; O2SAT 96
[2023-06-09 08:52] VITALS: BP 88/53; PULSE 67; RESP 19; O2SAT 96
[2023-06-09 09:02] VITALS: BP 99/62; PULSE 56; RESP 13; O2SAT 98
== END 2023-06-09 09:18 | disposition home or self-care (01) ==
PROVIDERS: PCP Family Medicine; Visit Provider Internal Medicine Gastroenterology
PROC: 0DJD8ZZ Inspection of Lower Intestinal Tract, Via Natural or Artificial Opening Endoscopic (ICD-10-PCS; CPT 45378; principal; 2023-06-09 08:30)
DX: Z12.11 Encounter for screening for malignant neoplasm of colon (principal); D12.5 Benign neoplasm of sigmoid colon; K64.8 Other hemorrhoids; Z80.0 Family history of malignant neoplasm of digestive organs
CPT/HCPCS: 45385; 45381; 88305; J2704; J7120

== ENCOUNTER 2023-10-21 09:56 | Outpatient (CLI) | payer MEDICARE, OTHER, SELFPAY ==
--- NOTE | ~2023-10-21 | XR_ITS ---
Right Hand Technique: PA and lateral views were obtained. Clinical History: Polyarthralgia Findings: No acute fracture or dislocation is seen. Osseous alignment is anatomic. Joint spaces are p reserved. Soft tissues are unremarkable. Impression: Unremarkable right hand. Reviewed, dictated and finalized at location M. Impression: Unremarkable right hand.
--- NOTE | ~2023-10-21 | XR_ITS ---
Left Hand Technique: PA and lateral views were obtained. Clinical History: Polyarthralgia Findings: No acute fracture or dislocation is seen. Osseous alignment is anatomic. Joint spaces are p reserved. Soft tissues are unremarkable. Impression: Unremarkable left hand. Reviewed, dictated and finalized at location M. Impression: Unremarkable left hand.
== END 2023-10-21 09:57 | disposition home or self-care (01) ==
LOC: ANHIMG 09:58
PROVIDERS: PCP Family Medicine; Visit Provider Physician Assistant Medical
DX: M25.50 Pain in unspecified joint (principal); R76.8 Other specified abnormal immunological findings in serum
CPT/HCPCS: 73120

== ENCOUNTER 2024-05-08 16:56 | Outpatient (CLI) | payer MEDICARE, OTHER, SELFPAY ==
--- NOTE | ~2024-05-08 | XR_ITS ---
EXAMINATION: XR chest 2V Exam Date/Time: 05/08/2024 17:00 SUPERVISOR TITLE HISTORY: COUGH, FEVER, SOB FOR A WEEK Comparison: None. RESULT: Lines, tubes, and devices: None. Lungs and pleura: Clear. Low volume with crowding in the lateral view. Cardiomediastinal silhouette: Unremarkable. Other: No acute osseous or upper abdominal finding. IMPRESSION: No acute cardiopulmonary process. Reviewed, dictated and finalized at location K. RVISOR TITLE
== END 2024-05-08 16:57 | disposition home or self-care (01) ==
LOC: ANHIMG 16:57
PROVIDERS: PCP Family Medicine; Visit Provider Physician Assistant Medical
DX: R05.9 Cough, unspecified (principal); R50.9 Fever, unspecified; R06.02 Shortness of breath
CPT/HCPCS: 71046

== ENCOUNTER 2024-05-30 15:19 | Outpatient (CLI) | payer MEDICARE, OTHER, SELFPAY ==
--- NOTE | ~2024-05-30 | MM_ITS ---
EXAMINATION: MM screening [facility] BI w vazquez HISTORY: Screening TECHNIQUE: Craniocaudal and mediolateral oblique 3-D tomosynthesis images were obtained and synthetic 2-D images were generated. CAD analysis was submitted and interpreted. COMPARISON: Comparison to multiple prior studies sequentially, with oldest reviewed study dated 01/04. BREAST PARENCHYMAL COMPOSITION: Not dense: There are scattered areas of fibroglandular density. FINDINGS: There is distortion of the breasts symmetrically, presumably from prior breast implant hafsa hafsa. There is no evidence of suspicious mass, calcification, or architectural distortion to suggest m alignancy in either breast. There has been no suspicious interval change. IMPRESSION: 1. No mammographic evidence of malignancy. 2. Recommend routine screening mammography in one year. BI-RADS Category 1: Negative Reviewed, dictated and finalized at location B. INIST LINOTYPE
== END 2024-05-30 15:20 | disposition home or self-care (01) ==
LOC: ANHIMG 15:21
PROVIDERS: PCP Family Medicine; Visit Provider Family Medicine
DX: Z12.31 Encounter for screening mammogram for malignant neoplasm of breast (principal)
CPT/HCPCS: 77063; 77067

== ENCOUNTER 2024-09-27 09:46 | Emergency (ER) | payer MEDICARE, OTHER, SELFPAY ==
[2024-09-27] VITALS (11 sets, daily range): BP systolic 84–103; BP diastolic 52–70; PULSE 56–70; RESP 11–21; TEMP 36.3; O2SAT 93–99
--- OUTSIDE RECORDS SUMMARY | 2024-09-27 10:37 | XMS_ITS | Clinical Summary ---
Author Organization [facility] [address] [facility] Address [address] [place] [id number] Care Team Providers Care Bus And Sys Integration Senior Manager Name Role Phone Feng Albrecht MD Primary Care Provider Jaspreet Edmonds MD Unavailable [phone] Allergies Active Allergy Reactions Criticality Noted Date Comments Penicillins Hives Medium 11/11/2021 Sulfa (Sulfonamide Antibiotics) Hives Medium 10/14 Medications atorvastatin (LIPITOR) 10 mg tablet Take 10 mg by mouth daily 09/14/2021 Active fluticasone propionate (FLONASE) 50 mcg/actuation nasal spray 2 sprays daily 10/09/2021 Active sertraline (ZOLOFT) 50 mg tablet Take 50 mg by mouth daily Active lysine 1,000 mg tablet Take by mouth Active turmeric root extract 500 mg capsule Take by mouth Active hydroxychloroqu ine (PLAQUENIL) 200 mg tablet Take 2 tablets (400 mg total) by mouth daily 60 tablet 2 07/30/2023 Active Active Problems Problem Noted Date Diagnosed Date Polyarthralgia 11/11/2021 Overview (10/29/2023): 11/11/21: CBC nl, CMP Cr 0.86, AST 18, ALT 14, uric acid 4.5, CRP 0.15 mg/dL, ESR 8, AVISE FRENCH 1:320 speckled, RF IgM 8.5, +PSPT IgM 44 04/2022 RF 16 11/2021 XR: -SI joints: Polyarticular joint spaces are normal with no erosions and some reticular sclerosis. Few phleboliths in the left hemipelvis. Mild OA of the left hip with minimal superomedial predominant nonuniform joint space narrowing -Lumbar spine: Mild disc height loss at L2-3, mild degenerative endplate changes without disc height loss at L3-4 and L4-5, mild to moderate lumbar facet osteoarthritis -Lt foot: Slight plantar calcaneal enthesopathy, mild OA of 1st MTP joint and some IP joints -Rt foot: Mild plantar and posterior calcaneal enthesopathy, mild OA at the 1st MTP and some IP joints 10/2023 bilateral hand XR: unremarkable US Right foot/ankle 11/14/21: 1. Grade 1 effusion in the 3rd MTPJ 2. Enthesophyte at distal Achilles attachment site without signs of inflammation 3. Thickening of the plantar fascia suggestive of plantar fasciitis US Right hand/wrist 05/05/22: Grade 1 power Doppler of the mid carpal recess Erosion of the lunate Mild synovial thickening of the 3rd MCPJ Moderate synovial thickening of the 2nd and 3rd PIPJ US Right hand/wrist 07/29/23: Grade 2 power Doppler of the dorsal wrist with stable erosion of the lunate Grade 1 effusion of the ulnar styloid Mild synovial thickening of the 2nd PIPJ with grade 1 power Doppler Moderate synovial thickening of the 3rd PIPJ Mild spurring of the 1st CMC joint Findings are compared to previous exam dated 05/05/22 showing increased power Doppler within the wrist, new mild effusion over the ulnar styloid. Improved thickening of the 3rd MCPJ and 2nd PIPJ but new power Doppler within the 2nd PIPJ and continued thickening of the 3rd PIPJ Assessment & Plan (03/29/2024 12:24 PM CDT): She has remained off HCQ since her last visit. Notes slight increase in joint pain affecting her fingers, wrists and ankles. Appreciates some joint stiffness with joints appearing swollen at times. Takes 1300mg Tylenol Arthritis qhs with noted reduction in pain - able to sleep. There is questionable fullness in a few PIP/MCP/MTP joints with slight tenderness to palpation. Ttp of greater trochanters. Still question if she has a mild inflammatory arthritis and suggested restarting HCQ daily but she declined given the photosensitivity she developed on it the last time. Discussed potential use of low dose leflunomide but she would prefer to monitor her symptoms at this time. To return in 1 year. Continue Tylenol Arthritis prn. Assessment & Plan (10/19/2023 12:20 PM CDT): Began 400mg HCQ daily in July with moderate diarrheal symptoms that slightly improved with holding/restarting the medication. Does report abnormal shaking/tremoring in the afternoon since starting HCQ as well as increased photosensitivity. Cannot appreciate any improvement in her prior joint complaints (hands, feet remain stiff/swollen in the AM) since starting HCQ. Does have some questionable fullness in a few of the right MTP joints only on exam. Given her reported side effects will stop HCQ and have her monitor for any change in her joint symptoms. Suspect she may have a low titer RF antibody without associated arthritis. Discussed use of a thumb spica splint for CMC joint pain and a knee sleeve for her left knee when she is riding her bike. Recommend Tylenol Arthritis, voltaren gel and NSAIDs prn. To return in 4-6 months for re-evaluation. Seen with Dr. Edmonds. Assessment & Plan (07/19/2023 12:46 PM SUPERVISOR OVENS): 04/2022 right hand/wrist US revealed mild-mod synovial thickening of the 3rd MCP and 2-3rd PIP joints with a lunate erosion but no surrounding inflammation. Repeat RF at that time was 16 with normal ESR/CRP levels. Continues to work out often on her stationary bike. Fatigue is better but continues to have swelling, stiffness and discomfort in her hands worse in the morning and occasionally causing nocturnal awakenings for which she takes Tylenol Arthritis with slight benefit. Also notes fine motor activities will cause flare-up in these symptoms. Synovitis present on exam of several MCP and PIP joints of bilateral hands. Remain concerned for a mild inflammatory arthritis (symptoms, mild findings on R foot and hand US, RF 8.5). Will repeat a right hand/wrist US to compare to 04/2022 as she would continue to remain off medications. Again discussed potential use for plaquenil in this setting and reviewed possible side effects. Will see what the hand US and blood work show and call with results. Continue Tylenol Arthritis prn. Return in 6 months, sooner if needed. Assessment & Plan (01/18/2023 5:16 PM CDT): 04/2022 right hand/wrist US revealed mild-mod synovial thickening of the 3rd MCP and 2-3rd PIP joints with a lunate erosion but no surrounding inflammation. Repeat RF was 16 with normal ESR/CRP levels. Continues to work out often, most recently she began cycling to help with leg strengthening. Notes newer onset of moderate fatigue symptoms where she is now napping during the day - this began about 2 weeks ago. Continues to have morning stiffness/swelling of her small joints as well as left heel pain located centrally that improves with ambulation. Takes advil prn with benefit. Mild amount of synovitis mostly of the bilateral PIP joints with several tender peripheral joints. She notes increased stress secondary to an ill family member and this may be contributing to her fatigue. On exam she appears to be more inflamed and we discussed the continued concerned for a mild inflammatory arthritis (symptoms, mild findings on R foot and hand US, RF 8.5). Again reviewed the option to start plaquenil and see how her joints respond but she is not ready to start a medication at this point and would prefer to continue to monitor for now. Will have her return in 6 months, sooner if needed. Consider repeat RA panel at that time. Assessment & Plan (07/01/2022 1:09 PM SUPERVISOR OVENS): 04/2022 right hand/wrist US revealed mild-mod synovial thickening of the 3rd MCP and 2-3rd PIP joints with a lunate erosion but no surrounding inflammation. Repeat RF was 16 with normal ESR/CRP levels. She has been taking 1300mg Tylenol Arthritis in the evenings for knee pain/stiffness she appreciates when she lays on her side for too long and goes to straighten her legs. Does note hands are sore in the Am but this dissipates quickly with activity. Questionable fullness of a few PIP joints on exam with +/- Finkelsteins of left wrist and +medial epicondylitis. Discussed use of a thumb spica splint for her left wrist pain, reduction of dumbbell weight when she performs bicep curls to allow epicondylitis to improve and limiting repetitive motions. We discussed potential use of HCQ in the setting of probable early/mild inflammatory arthritis but she would prefer to continue advil and tylenol regimen. Will continue to monitor at this time. Return in 6 months, sooner if needed. Seen with Dr. Edmonds. Assessment & Plan (05/01/2022 12:33 PM SUPERVISOR OVENS): Continues to have foot pain since last visit despite use of Turmeric, advil BID and tylenol prn. Hands are swollen in the AM and improve with activity. Feet ache unless she is wearing tennis shoes ([place]). There is fullness of the 2-3rd MCP joints bilaterally as well as the corresponding PIP joints with several tender peripheral joints. Remained concerned for a mild underlying inflammatory arthritis. Will first have her stop Turmeric to see if this is offering any benefit. Would like to obtain R hand/wrist US, bilateral hand radiographs and repeat serologies/labs to re-evaluate symptoms. Consider increasing Tylenol Arthritis to 1300mg BID and optimizing Advil following the hand US. To return in [address] Edmonds. Assessment & Plan (11/25/2021 3:21 PM CDT): Ms. Jc is a 66yo female with PMH of CTS, depression, high cholesterol, anxiety, anemia, seizure (1985) and IBS who presented at last visit for additional evaluation of her joint pain. Reports R arm pain/heaviness that began in mid- September with work up that led to +FRENCH and cervical spine DDD with subsequent PT sessions to correct. Arm pain has since resolved. Describes AM stiffness lasting few hours affecting lower extremities that improves with activity. Experiences short lived stabbing pain in right foot that radiates up into knee as well as posterior pelvis/hip discomfort. Increased to 1500mg Turmeric daily in divided doses. Additional symptoms include fatigue and cognitive difficulties/hard to focus. FH significant for cousin with hx of neurosarcoidosis. Recent serologies were positive for FRENCH 1:320, RF 8.5 (low+) and PSPT 44. Radiographic imaging of the SI joints, lumbar spine and feet revealed varying degrees of osteoarthritic changes. A right foot/ankle US demonstrated thickening of the plantar fascia, an enthesophyte at the distal Achilles attachment and a grade 1 effusion in the 3rd MTP joint. Based on the above workup and physical exam the patient does not appear to have an active inflammatory arthritis, however some of her symptoms remain concerning. Would recommend monitoring at this time with continuation of Turmeric 1500mg daily, Tylenol Arthritis 1300mg BID prn and/or 600mg ibuprofen for joint pain or headaches. Return in 4-6 months, sooner if needed. Seen with Dr. Edmonds. Assessment & Plan (11/11/2021 9:11 PM CDT): Ms. Jc is a 66yo female with PMH of CTS, depression, high cholesterol, anxiety, anemia, seizure (1985) and IBS who presents for additional evaluation of her joint pain. Reports R arm pain/heaviness that began in mid-September with work up that led to +FRENCH and cervical spine DDD with subsequent PT sessions to correct. Arm pain has since resolved. Describes AM stiffness lasting few hours affecting lower extremities that improves with activity. Experiences short lived stabbing pain in right foot that radiates up into knee as well as posterior pelvis/hip discomfort. Recently with frontal headaches unresolved with 2 advil. Began Turmeric this year. Additional symptoms include fatigue and cognitive difficulties/hard to focus. FH significant for cousin with hx of neurosarcoidosis. Ttp of several peripheral joints and SI joints with questionable fullness in a few MCP/PIP joints. Low suspicious for a CTD or inflammatory arthritis based on symptoms. Will perform appropriate radiographs, serologies, and right foot/ankle US to assess the etiology of symptoms. Continue Turmeric, try Tylenol Arthritis 1300mg BID and/or 600mg ibuprofen for joint pain or headaches. Return in [address] Edmonds. Surgical History Surgery Date Site/Laterality Comments SECTION 06/14/1990 - 06/13/1991 COMBINED REDUCTION MAMMAPLAS TY W/ ABDOMINOPLASTY 06/14/2004 - 06/13/2005 Social History Tobacco Use Types Packs/Day Years Used Date Smoking Tobacco: Never Assessed Comments Unknown Sex and Gender Information Value Date Recorded Sex Assigned at Not on file Legal Sex Female 9:06 AM CDT Gender Identity Not on file Sexual Orientation Not on file Obstetrics History Last Filed Vital Signs Vital Sign Reading Time Taken Comments Blood Pressure 136/84 03/29/2024 10:33 AM CDT Pulse 69 03/29/2024 10:33 AM CDT Temperature - - Respiratory Rate - - Oxygen Saturation 97% 03/29/2024 10:33 AM CDT Inhaled Oxygen Concentration - - Weight 67.6 kg (149 lb) 03/29/2024 10:33 AM CDT Height 158.8 cm (5' 2.5 ) 03/29/2024 10:33 AM CD T Body Mass Index 26.82 03/29/2024 10:33 AM CDT Plan of Treatment Health Maintenance Due Date Last Done Comments Breast Cancer Screening-Mammogram 1954 Colon Cancer Screening-Colonoscopy 1954 Depression Screening 1954 Fall Risk Assessment 1954 Hepatitis C Screening 1954 Osteoporosis Screening-Bone Density Scan 1954 DTaP/Tdap/Td Vaccine (1 - Tdap) 1965 Hepatitis B Screening 01/29/1972 Well Visit 65+ 2019 Pneumococcal vaccine 65+ (2 of 2 - PPSV23) 03/08/2020 03/08/2019 Covid-19 Vaccine (3 - 2023-2 5 season) 2024 04/28/2021, 08/22/2020 Influenza Vaccine (Season Ended) 2025 03/25/2021, 03/20/2020, 03/08/2019, Additional history exists Zoster Vaccine Completed 08/05/2020, 05/15, 04/13/2016 Insurance MEDICARE [facility] [id number] Care Teams Bus And Sys Integration Senior Manager Relationship Specialty Start Date End Date Feng Albrecht MD [address] [facility] [address] [place] [address] PCP - General Family Medicine 10/07/21 Jaspreet Edmonds MD [address] [place] [address] Consulting Physician Rheumatology 10/07/21
--- OUTSIDE RECORDS SUMMARY | 2024-09-27 10:37 | XMS_ITS | Referral Summary ---
Author Organization [facility] [address] [facility] Address [address] [place] [id number] Care Team Providers Care Ux Visual Designer Name Role Phone Feng Albrecht MD Primary Care Provider Jaspreet Edmonds MD Unavailable [phone] Allergies Active Allergy Reactions Criticality Noted [...] Edmonds. Assessment & Plan (07/19/2023 12:46 PM TELESCOPE MAINTENANCE): 04/2022 right hand/wrist US revealed mild-mod synovial [...] time. Assessment & Plan (07/01/2022 1:09 PM TELESCOPE MAINTENANCE): 04/2022 right hand/wrist US revealed mild-mod synovial [...] Edmonds. Assessment & Plan (05/01/2022 12:33 PM TELESCOPE MAINTENANCE): Continues to have foot pain since last [...] in [address] Edmonds. Social History Tobacco Use Types Packs/Day Years Used Date Smoking Tobacco: Never Assessed Comments Unknown Sex and Gender Information Value Date Recorded Sex Assigned at Not on file Legal Sex Female 9:06 AM CDT Gender Identity Not on file Sexual Orientation Not on file Last Filed Vital Signs Vital Sign Reading [...] 03/29/2024 10:33 AM CDT Plan of Treatment Not on file Insurance MEDICARE [facility] Care Teams Ux Visual Designer Relationship Specialty Start Date End Date Feng Albrecht MD [address] [place] [address] PCP - General Family Medicine 10/07/21 Jaspreet Edmonds MD [address] [place] [address] Consulting Physician Rheumatology 10/07/21
--- OUTSIDE RECORDS SUMMARY | 2024-09-27 10:37 | XMS_ITS | Continuity of Care Document ---
Author Organization [facility] Address [address] [place] [address] Phone Care Team Providers Care Bridge Crane Operator Name Role Phone Kleli MCKEON, [facility] Unavailable Unavai lable Allergies, Adverse Reactions, Alerts Substance Reaction Status Criticality SULFACARBAMIDE Active No Informatio n penicillin V Active No Information Medications Medication Instructions Dosage Effective Dates (start - stop) Status Comments LEXAPRO 20MG TAB ACTA TAKE ONE TABLET BY MOUTH ONCE DAILY. - Active LEXAPRO 20MG TAB FORE TAKE ONE TABLET BY MOUTH ONCE DAILY. 20 MG - Active Procedures Procedure Date Office/outpatient visit,est, mod 2013 Office/outpatient visit,est, mod 2013 Most Recent Systolic BP W/in 12 Mos <130 mm Hg Most Recent Diastolic BP W/in <80 mm Hg Obtaining screen pap smear Stool For Occult Blood, Symptomatic Preventive checkup, est,40-64 yrs X-ray exam of wrist, complete 3 X-ray exam of finger(s),2+ views 2012 Office/outpatient visit,est, mod 2012 Hemoglobin count, colorimetric 13 Office/outpatient visit,est, mod 2012 Specimen handling/transport Venpnctr fngr/heel/ear stick routne Office/outpatient visit,est, mod 2012 Wrist cock-up non-molded X-ray exam of wrist, complete 3 X-ray exam of hand, 3+ views Specimen handling/transport Venpnctr fngr/heel/ear stick routne Office/outpatient visit,est, mod 2011 Office/outpatient visit,est, mod 2011 Urinalysis, automated, w/o scope 2011 Venpnctr fngr/heel/ear stick routne Specimen handling/transport Office/outpatient visit,est, mod 2011 Remove impacted ear wax Shave lesion, scalp/neck/hand/foot Office/outpatient visit,est, mod 2011 Venpnctr fngr/heel/ear stick routne Specimen handling/transport Obtaining screen pap smear Stool For Occult Blood, Colorectal Scree ximena Preventive checkup, new,40-64 yrs Advance Directives Directive Yes / No Effective Date File Name No Information Encounters Encounter Description Practice Location Reason(s) For Visit Diagnoses Date Provider Providers Copied on Encounter [facility], [address] [place] [address], [id number], [place] tel:[phone] [facility] No Information 5 Jona Montalvo. [address] [place] [address], [address], [place], [place], [id number], [place]. tel:[phone] [facility], [address] [place] [address] [address], [place], [place], [id number], [place] tel:[phone] [facility] No Information 4 Jona Montalvo. [address] [place] [address], [address], [place], [place], [id number], [place]. tel:[phone] [facility], [address] [place] [address] [address], [place], [place], [id number], [place] tel:[phone] [facility] No Information 4 [facility]. [address] [place] [address], [address], [place], [place], [id number], [place]. tel:[phone] Office/outpa tient visit,[facility], [facility], [address] [place] [address], [id number], [place] tel:[phone] [facility] ref on lexapro (chief complaint)Anx iety (chief complaint)Dep ression (chief complaint) AnxietyBreas t cancer screening 4 [facility]. [address] [place] [address], [address], [place], [place], [id number], [place]. tel:[phone] Office/outpa tient visit,[facility], [facility], [address] [place] [address], [id number], [place] tel:[phone] [facility] neck stiffnes x 1mth (chief complaint) DJD (degenerativ e joint disease) of cervical spineCervica l radiculopath yOTH SPECIFIED EXAM 4 Dacus Garcíaa. [address], [address], [place], [place], [id number], [place]. tel:[phone] Preventive checkup, est,40-64 yrs [facility], [address] [place] [address], [id number], [place] tel:[phone] [facility] preventive exam (chief complaint) Well woman exam with routine gynecologica l examCONTUSIO N OF HAND(S)SYMPT FEM CLIMACT STATEBorderl ine high cholesterolW ELL ADULT EXAM Feb- 3 Faina Mercer. [address], [place], [place], [id number], [place]. tel:[phone] Office/outpa tient visit,est, [facility], [address], [place], [place], [id number], [place] tel:[phone] [facility] dizziness (chief complaint) BPPV (benign paroxysmal positional vertigo) 3 Faina Mercer. [address], [place], [place], [id number], [place]. tel:[phone] Office/outpa tient visit,est, [facility], [address], [place], [place], [id number], [place] tel:[phone] [facility] Tiredness (chief complaint) FATIGUE 3 Faina Mercer. [address], [place], [place], [id number], [place]. tel:[phone] Office/outpa tient visit,est, [facility], [address], [place], [place], [id number], [place] tel:[phone] [facility] Musculoskelet al Pain (chief complaint) Contusion of hand, rightAbrasio n of right kneeFall 3 Faina Mercer. [address], [place], [place], [id number], [place]. tel:[phone] Office/outpa tient visit,est, [facility], [address], [place], [id number], [place] tel:[phone] [facility] cough/fatigue /nasal congestion (chief complaint) BronchitisHi story of mononucleosi s 2 Faina Mercer. [address], [place], [place], [id number], [place]. tel:[phone] Office/outpa tient visit,est, [facility], [address], [place], [id number], [place] tel:[phone] [facility] earache (chief complaint)lef t breast air bubble (chief complaint) Allergic rhinitisS/P breast implant, saline 2 Zahirpour Tannsamm. [address], [place], [place], [id number], [place]. tel:[phone] Office/outpa tient visit,est, [facility], [address], [place], [id number], [place] tel:[phone] [facility] fatigue (chief complaint) FatigueCold sore 2 Zahirpour Tannaz. [address], [place], [place], [id number], [place]. tel:[phone] [facility], [address], [place], [place], [id number], [place] tel:[phone] [facility] Mole(s) (chief complaint) Atypical nevusCerumen impaction 2 Zahirpour Tannsamm. [address], [place], [place], [id number], [place]. tel:[phone] Office/outpa tient visit,[facility], [facility], [address], [place], [place], [id number], [place] tel:[phone] [facility] cold symptoms (chief complaint) Bronchitis 2 Zahirpour Tannaz. [address], [place], [place], [id number], [place]. tel:[phone] Preventive checkup, new,40-64 yrs [facility], [address], [place], [id number], [place] tel:[phone] [facility] preventive exam (chief complaint) SCREEN MALIG NEOP-COLONWe ll woman exam with routine gynecologica l examVisit for screening mammogramFam libby history of colon cancerAnxiet y 201 2 Faina Mercer. [address], [place], [place], [id number], [place]. tel:[phone] Family History Family Member Type Diagnosis Age At Onset Mother Problem (finding) Mother Problem (finding) Cancer -colon (Cause Of ) Mother Problem (finding) alcoholism Payers Payer name Insurance type Covered libertarian ID Authoriza tion(s) [employer] [place] P[place] BL [id number] Social History Type Description Quantity Date Captured Comments Alcohol Use Details Unknown Caffeine Use Details Unknown Tobacco Use Status No Information Smoking Status No Information Sex Female Chief Complaint And Reason For Visit No Information Reason For Referral Reason For Referral No Information History Of Present Illness Encounter Date Complaint History Of Prese nt Illness ref on lexapro (comments) Godwin nt 58-year-old female here requesting refill of her Lexapro 20 mg daily. States she has been on medication for anxiety and depression for over 20 years, used to be on Paxil but didn't like the way she felt on it. In the last 10 years she has been on Lexapro. Over the years she has tried getting off of it, but always felt better on medication.She is current on her colonoscopy 05/10/13, informed she is over due for her mammogram. She has no time here locally before her move and she will have to do it in [place]. Her recent LDL of the teacher lip reading that she saw was 139 which is quite a bit better.She reports today that this will be her last visit, she is retired, sold her home locally and will be relocating to [place]. She has no history of tobacco use, alcohol or drug use. Needing a 90 day refill of her Lexapro due to the move, she has the [employer] PBM. ref on lexapro Depression Anxiety neck stiffnes x 1mth pt has hx o f DJD and mild stenosis of c spine, MRI done 11/2011, she would like order for PT. She is very active, runs. C/o pain in neck which radiates to L shoulder and head. neck stiffnes x 1mth (comments) preventive exam (comments) preventive exam The patient stat es she uses menopausal for control. Negative for: breast discharge, breast lump(s) and breast pain. Positive for: breast self exam. Menopausal symptoms negative for: hot flashes, insomnia, night sweats and vaginal dryness. Pertinent negatives include anxiety, depression, difficulty falling sleep, sexual dysfunction, sleep disturbances, urinary incontinence, urinary urgency and vaginal itching. She does not take calcium. She does take multivitamins. Additional information: last mammogram 10/03/2012 normallast pap smear 07/29/2011last tadp 2007currently on low dose testosterone being prescribed by homeopath Functional Status Date Functional Assessmen t No Information Instructions Date Instruction Additional Infor viola Written educational materials given to patient. Related to Anxiety advise if pain or numbness worse ns Related to DJD (degenerative joint disease) of cervical spine meds as directed Related to DJD (degenerative joint disease) of cervical spine Rest Ice Compression Related to DJD (degenerative joint disease) of cervical spine pt referral Related to Cervi lorin radiculopathy alternate heat and ice Related t o Cervical radiculopathy meds as discussed Related to Cer vical radiculopathy avoid rapid movement s. update me in 24hrs with status of BPPV Related to BPPV (benign paroxysmal positional vertigo) RTC if not better or worsening R elated to BPPV (benign paroxysmal positional vertigo) Rx Meclizine 25mg TI D, prn. Avoid alcohol intake. Increase hydration Related to BPPV (benign paroxysmal positional vertigo) current symptoms ass ociated with fatigue, check EBV IgM Related to History of mononucleosis RTC if not better in 5 days Rela scottie to Bronchitis increase rest and hydration Rela scottie to Bronchitis Rx zpak, Albuterol p rn SOB, and phenergan with codeine prn cough Related to Bronchitis Patient instructed o n use of Flonase daily Related to Allergic rhinitis Recommended Diana-D daily Rela scottie to Allergic rhinitis normal clinical jamie st exam. Normal h/o screening mammograms Related to S/P breast implant, saline recent mammogram on 08/10/2011. pt reassured Related to S/P breast implant, saline s/p ear lavage. TM's normal. Avoid use of q-tips Related to Cerumen impaction s/p shave bx. sent f or path. f/u results. wound care instructions given Related to Atypical nevus RTC if not better in 5 days Rela scottie to Bronchitis increase rest and hydration Rela scottie to Bronchitis Rx zpak, Albuterol p rn SOB, and phenergan with codeine prn cough Related to Bronchitis Assessments Type Assessment Date No Information Patient Care Teams Name Effective Dates (start - stop) Status Members No Information
--- OUTSIDE RECORDS SUMMARY | 2024-09-27 10:37 | XMS_ITS | Continuity of Care Document ---
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 Fry Cook Operator Name Role Phone Chadd Walsh MD Unavailable Unavailable Procedures Procedure Date Offic/Outpt E&M Estab Mod-Hi 25 Min Pelvic/Breast Exam For Cervical/Vaginal Scrn Screen Pap Obtain Prep Convey Lab Handl/Convey Specmn-Offic To Lab 2009 Occult Blood; Feces Screen 1-3 Determ Se Advance Directives Directive Yes / No Effective Date File Name No Information Encounters Encounter Description Practice Location Reason(s) For Visit Diagnoses Date Provider Providers Copied on Encounter Offic/Outpt E&M Estab Mod-Hi 25 Min [facility] [id number], [place], [place], [id number], [place] [address] No Information Nico Florentino. [address] , [address], [place], [place], [id number], [place]. tel:[phone] Family History Family Member Type Diagnosis Age At Onset No Information Payers Payer name Insurance type Covered constitution party ID Authoriza tion(s) [facility] [id number] Social History Type Description Quantity Date Captured Comments Sex Female Smoking Status No Information Chief Complaint And Reason For Visit No Information Reason For Referral Reason For Referral No Information History Of Present Illness Encounter Date Complaint History Of Prese nt Illness No Information Functional Status Date Functional Assessmen t No Information Instructions Date Instruction Additional Infor mation No Information Assessments Type Assessment Date No Information Patient Care Teams Name Effective Dates (start - stop) Status Members No Information
--- NOTE | 2024-09-27 10:44 | ECG_ITS ---
Test Date: 2024-09-27 11:22:26 Measurements Intervals [place] Rate: 53 P: 27 IN: 190 QRS: 37 QRSD: 86 T: 15 QT: 452 QTc: 425 Interpretive Statements SINUS BRADYCARDIA LOW QRS VOLTAGE IN PRECORDIAL LEADS BASELINE ARTIFACT- I, III, AVR, AVL, AVF BORDERLINE ECG No previous ECG available for comparison Electronically Signed On 09-27-2024 11:27:48 CDT by Fernando Dominguez D.O.
[2024-09-27] MEDS: SODIUM CHLORIDE 0.9% IV 1,000 ML 999 ML IV CONT (11:01)
[2024-09-27 11:07] LABS: Basophils Percent Auto 0.3 % (0.2-1.2); Eosinophils Absolute Auto 0.1 K/mm3 (0-0.3); Eosinophils Percent Auto 2.2 % (0-4.4); Hematocrit 38.8 % (37.0-47.0); Hemoglobin 12.7 g/dL (12.0-15.0); Immature Granulocyte Absolute 0.01 K/mm3 (0.00-0.031); Immature Granulocyte Percent A 0.2 % (0-0.5); Lymphocytes Absolute Auto 1.67 K/mm3 (0.9-3.2); Lymphocytes Percent Auto 28.1 % (18.3-44.2); Mean Corpuscular HGB Conc 32.7 g/dl (32-36); Mean Corpuscular Hemoglobin 29.7 pg (26-34); Mean Corpuscular Volume 90.7 fl (80-100); Mean Platelet Volume 10.4 fl (7.4-10.4); Monocytes Absolute Auto 0.5 K/mm3 (0.1-0.6); Monocytes Percent Auto 8.9 % (2.6-8.5); Neutrophils Absolute Auto 3.6 K/mm3 (1.3-6.7); Neutrophils Percent Auto 60.3 % (45.5-73.1); Platelet Count Result 194 k/mm3 (150-375); Red Blood Count 4.28 M/mm3 (4.2-5.4)
[2024-09-27 11:19] LABS: Alanine Aminotransferase 20 U/L (6-35); Albumin Level 4.1 g/dL (3.5-5.1); Alkaline Phosphatase 46 U/L (38-126); Anion Gap 7 mmol/L (4-12); Aspartate Amino Transferase 28 U/L (14-36); Bilirubin,Total 0.3 mg/dL (0.2-1.3); Blood Urea Nitrogen 22 mg/dL (7-17); Calcium 8.9 mg/dL (8.4-10.2); Carbon Dioxide 26 mmol/L (22-30); Chloride 102 mmol/L (98-107); Estimated CRCL calculation 49 ml/min; Estimated Glomerular Filt Rate > 60; Glucose 90 mg/dL (65-110); Potassium 4.3 mmol/L (3.4-5.0); Sodium 135 mmol/L (137-145)
[2024-09-27 11:20] LABS: Ethanol < 10 mg/dL (<10)
[2024-09-27 11:30] LABS: Amphetamine Screen Urine Negative (Negative); Barbiturate Screen Urine Negative (Negative); Benzodiazepines Screen Urine Negative (Negative); Cannabinoid Screen Urine Negative (Negative); Cocaine Screen Urine Negative (Negative); Methadone Screen Urine Negative (Negative); Opiate Screen Urine Negative (Negative); Phencyclidine Screen Urine Negative (Negative)
[2024-09-27 11:39] LABS: Add Urine Microscopic? YES; Appearance Urine Clear (Clear); Bacteria Urine None Seen /hpf; Bilirubin Urine Negative (Negative); Blood Urine Negative (Negative); Color Urine Yellow (Yellow); Glucose Urine UA Negative (Negative); Ketones Urine Negative (Negative); Leukocyte Esterase Ur 3+ LEU/UL (Negative); Mucus Urine Present /lpf; Need Manual Microscopic Reviewed; Nitrate Urine Negative (Negative); Non Pathogenic Casts 0-2; Protein Urine Negative (Negative); RBC Urine 0-2 /hpf (0-2); Specific Grav Ur 1.019 (1.001-1.035); Squamous Epithelial Cell Urine Few /hpf (Few); Urobilinogen Urine 0.2 mg/dL (<2.0); WBC Urine 51-100 /hpf (0-3); pH Urine 5.5 (5.0-9.0)
[2024-09-27 11:40] LABS: Transitional Epi Cells Urine Few /hpf (None Seen)
--- OUTSIDE RECORDS SUMMARY | 2024-09-27 11:52 | XMS_ITS | Clinical Summary ---
Author Organization [facility] [address] [facility] Address [address] [place] [address] Care Team Providers Care Bridge Saw Operator Name Role Phone Feng Albrecht MD Primary Care Provider Jaspreet Edmonds MD Unavailable [phone] Allergies Active Allergy Reactions Criticality Noted [...] Edmonds. Assessment & Plan (07/19/2023 12:46 PM FLOORWORKER): 04/2022 right hand/wrist US revealed mild-mod synovial [...] time. Assessment & Plan (07/01/2022 1:09 PM FLOORWORKER): 04/2022 right hand/wrist US revealed mild-mod synovial [...] Edmonds. Assessment & Plan (05/01/2022 12:33 PM FLOORWORKER): Continues to have foot pain since last [...] Vaccine Completed 08/05/2020, 05/15, 04/13/2016 Insurance MEDICARE [facility] [place] [id number] Care Teams Bridge Saw Operator Relationship Specialty Start Date End Date Feng Albrecht MD [address] [facility] [address] [place] [address] PCP - General Family Medicine 10/07/21 Jaspreet Edmonds MD [address] [place] [address] Consulting Physician Rheumatology 10/07/21
--- OUTSIDE RECORDS SUMMARY | 2024-09-27 11:52 | XMS_ITS | Referral Summary ---
Author Organization [facility] [address] [facility] Address [address] [place] [id number] Care Team Providers Care Thread Reeler Name Role Phone Feng Albrecht MD Primary Care Provider Jaspreet Edmonds MD Unavailable [phone] Allergies Active Allergy Reactions Criticality Noted [...] Edmonds. Assessment & Plan (07/19/2023 12:46 PM HAND BOOTMAKER): 04/2022 right hand/wrist US revealed mild-mod synovial [...] time. Assessment & Plan (07/01/2022 1:09 PM HAND BOOTMAKER): 04/2022 right hand/wrist US revealed mild-mod synovial [...] Edmonds. Assessment & Plan (05/01/2022 12:33 PM HAND BOOTMAKER): Continues to have foot pain since last [...] of Treatment Not on file Insurance MEDICARE [facility] Care Teams Thread Reeler Relationship Specialty Start Date End Date Feng Albrecht MD [address] [place] [address] PCP - General Family Medicine 10/07/21 Jaspreet Edmonds MD [address] [place] [address] Consulting Physician Rheumatology 10/07/21
--- NOTE | 2024-09-27 12:10 | ED.GENADULT ---
HPI - General Adult General Chief complaint: Overdose Stated complaint: accidental overdose Time Seen by Provider: 09/27/24 10:24 History of Present Illness HPI narrative: Patient 69-year-old female who presents emergency department chief complaint of accidental ingestion. The patient states she took 4 tablets of 2 mg of zanaflex instead of taking her prednisone. The patient states she feels a little weird feels tired and decided to come the emergency department for evaluation Related Data Home Medications ?Medication ?Instructions ?Recorded ?Confirmed ?Last Taken ?Type cetirizine 10 mg tablet (Zyrtec) 10 mg PO DAILY PRN allergies 07/05/19 09/26/24 12/26/19 History lysine 500 mg tablet (L-Lysine) 500 mg PO DAILY 12/21/19 09/26/24 12/26/19 History dgocpvyh-ful-MY 200 mcg-vit K 100 1 cap PO DAILY 12/21/19 09/26/24 12/26/19 History mcg-lycop 500 [id number] capsule (Daily Multivitamin) valacyclovir 500 mg tablet 1,000 mg PO PRN PRN Cold Sores 12/21/19 09/26/24 12/26/19 History Allergies Allergy/AdvReac Type Severity Reaction Status Date / Time Penicillins Allergy Unknown Hives Verified 09/26/24 11:32 Sulfa (Sulfonamide Allergy Unknown Hives Verified 09/26/24 11:32 Antibiotics) lactose AdvReac Severe explosive Verified 09/26/24 11:32 diarrhea Review of Systems Review of Systems: A 10 system review of systems was completed on the patient and is negative except for what is stated in the HPI. Nursing and ancillary documentation was reviewed. [facility] Family History Family History Mother Carcinoma of colon Social History Social History Smoking status: Never smoker Second hand tobacco smoke exposure: No Alcohol intake: never Substance use: never Substance use type: does not use Living arrangements: with family Occupation/Education: retired Gender identity (if verbalized by the patient): Female Sexual Orientation (if Verbalized by the Patient): Straight or Heterosexual Spiritual care concerns: No Exam Narrative: GENERAL: Well-appearing, well-nourished, and in no acute distress. HEAD: Normocephalic, atraumatic. EYES: PERRLA and EOMI. ENT: Nares clear, no rhinorrhea or epistaxis. Mucous membranes moist. NECK: Supple. CHEST: Clear to auscultation. No respiratory distress. HEART: Regular rate and rhythm. No murmur heard. Normal peripheral pulses. ABDOMEN: Soft, nontender, nondistended, normal active bowel sounds. EXTREMITIES: Normal range of motion. No edema. SKIN: Warm, dry, no rash. NEURO: No focal deficits. Alert and oriented x3. PSYCH: Normal mood and affect. Course Vital Signs Vital signs: Vital Signs Temperature 36.3 C L 09/27/24 09:48 Pulse Rate 70 09/27/24 09:48 Respiratory Rate 16 09/27/24 09:48 Blood Pressure 84/52 L 09/27/24 09:48 Pulse Oximetry 97 09/27/24 09:48 Oxygen Delivery Room Air 09/27/24 09:48 Temperature 36.3 C L 09/27/24 09:48 Pulse Rate 70 09/27/24 09:48 Respiratory Rate 18 09/27/24 10:36 Blood Pressure 84/52 L 09/27/24 09:48 Pulse Oximetry 99 09/27/24 10:36 Oxygen Delivery Room Air 09/27/24 10:36 Medical Decision Making MDM Narrative Medical decision making narrative: Patient was hydrated and observed in the emergency department. The patient had an accidental ingestion the case was discussed with poison control did clear the patient the patient was observed and will be discharged home Vital Signs Vital Signs: Vital Signs Temperature 36.3 C L 09/27/24 09:48 Pulse Rate 70 09/27/24 09:48 Respiratory Rate 16 09/27/24 09:48 Blood Pressure 84/52 L 09/27/24 09:48 Pulse Oximetry 97 09/27/24 09:48 Oxygen Delivery Room Air 09/27/24 09:48 Temperature 36.3 C L 09/27/24 09:48 Pulse Rate 70 09/27/24 09:48 Respiratory Rate 18 09/27/24 10:36 Blood Pressure 84/52 L 09/27/24 09:48 Pulse Oximetry 99 09/27/24 10:36 Oxygen Delivery Room Air 09/27/24 10:36 Lab Data 09/27/24 10:55 09/27/24 10:55 Labs: Lab Results 09/27/24 09/27/24 09/27/24 Range/Units 10:55 10:57 10:58 WBC 6.0 (4.5-10.0) K/mm3 RBC 4.28 (4.2-5.4) M/mm3 Hgb 12.7 (12.0-15.0) g/dL Hct 38.8 (37.0-47.0) % MCV 90.7 (80-100) fl MCH 29.7 (26-34) pg MCHC 32.7 (32-36) g/dl RDW 12.0 (11.5-14.5) % Plt Count 194 (150-375) k/mm3 MPV 10.4 (7.4-10.4) fl Immature Gran % (Auto) 0.2 (0-0.5) % Neut % (Auto) 60.3 (45.5-73.1) % Lymph % (Auto) 28.1 (18.3-44.2) % Stephens % (Auto) 8.9 H (2.6-8.5) % Eos % (Auto) 2.2 (0-4.4) % Baso % (Auto) 0.3 (0.2-1.2) % Lymph # (Auto) 1.67 (0.9-3.2) K/mm3 Stephens # (Auto) 0.5 (0.1-0.6) K/mm3 Eos # (Auto) 0.1 (0-0.3) K/mm3 Baso # (Auto) 0.0 (0.0-0.1) K/mm3 Abs Immat Gran (auto) 0.01 (0.00-0.031) K/mm3 Absolute Neuts (auto) 3.6 (1.3-6.7) K/mm3 Absolute Nucleated RBC 0.000 (0.0-0.012) K/mm3 Nucleated RBC % 0.0 (0.0-0.2) % Sodium 135 L (137-145) mmol/L Potassium 4.3 (3.4-5.0) mmol/L Chloride 102 (98-107) mmol/L Carbon Dioxide 26 (22-30) mmol/L Anion Gap 7 (4-12) mmol/L BUN 22 H (7-17) mg/dL Creatinine 0.85 (0.7-1.0) mg/dL Estim Creat Clear Calc 49 ml/min Estimated GFR > 60 (59 - ) Glucose 90 (65-110) mg/dL Calcium 8.9 (8.4-10.2) mg/dL Magnesium 2.0 (1.6-2.3) mg/dL Total Bilirubin 0.3 (0.2-1.3) mg/dL AST 28 (14-36) U/L ALT 20 (6-35) U/L Alkaline Phosphatase 46 (38-126) U/L Total Protein 7.0 (6.3-8.2) g/dL Albumin 4.1 (3.5-5.1) g/dL Urine Color Yellow (Yellow) Urine Appearance Clear (Clear) Urine pH 5.5 (5.0-9.0) Ur Specific [place] 1.019 (1.001-1.035) Urine Protein Negative (Negative) mg/dL Urine Glucose (UA) Negative (Negative) mg/dL Urine Ketones Negative (Negative) mg/dL Ur Blood (Man) Negative (Negative) Urine Nitrate Negative (Negative) Urine Bilirubin Negative (Negative) Urine Urobilinogen 0.2 (<2.0) mg/dL Add Ur Microanalysis Reviewed Leukocyte Esterase Rfl 3+ H (Negative) KIMBERLEY/UL Urine RBC 0-2 (0-2) /hpf Urine WBC 51-100 H (0-3) /hpf Ur Squamous Epith Cells Few (Few) /hpf Ur Transition Epith Cell Few H (None Seen) /hpf Urine Bacteria None seen /hpf Urine Casts 0-2 Urine Mucus Present /lpf Urine Opiates Screen Negative (Negative) Urine Methadone Screen Negative (Negative) Ur Barbiturates Screen Negative (Negative) Ur Phencyclidine Scrn Negative (Negative) Ur Amphetamine Screen Negative (Negative) U Benzodiazepines Scrn Negative (Negative) Urine Cocaine Screen Negative (Negative) U Cannabinoids Screen Negative (Negative) Ethyl Alcohol < 10 (<10) mg/dL Discharge Plan Discharge Clinical Impression: Accidental drug ingestion, Acute UTI Patient Disposition: Home Condition: Stable Instructions: Antibiotic Form, Adult Overdose (ED) Patient Language: Mongolian Prescriptions: New cephalexin 500 mg capsule 500 mg PO Q12H 7 Days Qty: 14 0RF No Action cetirizine [Zyrtec] 10 mg tablet 10 mg PO DAILY PRN (Reason: allergies) prednisone 10 mg tablet 10 mg PO DAILY Qty: 30 0RF Rx Instructions: Take PO 4 tabs daily x3 days, 3 tabs daily x3 days, 2 tabs daily x3 days, 1 tab daily x3 days tizanidine 2 mg tablet 2 mg PO TID PRN (Reason: muscle spasticity) Qty: 60 0RF albuterol sulfate 90 mcg/actuation HFA aerosol inhaler 1 inh inhalation Q4H PRN (Reason: shortness of breath or wheezing) Qty: 8.5 0RF lysine [L-Lysine] 500 mg Tablet 500 mg PO DAILY Daily Multivitamin 200-100-500 mcg Capsule 1 cap PO DAILY valacyclovir 500 mg tablet 1,000 mg PO PRN PRN (Reason: Cold Sores) Rx Instructions: Take 2 tabs po q12 hrs x 1 days at onset of cold sore. fluticasone propionate [Allergy Relief (fluticasone)] 50 mcg/actuation spray,suspension 2 spray NASAL DAILY Qty: 54.6 4RF Rx Instructions: administer into each nostril atorvastatin 10 mg tablet See Rx Instructions .ROUTE .COMPLEX Qty: 90 2RF Dose Instruction: TAKE 1 TABLET BY MOUTH EVERY DAY Rx Instructions: TAKE 1 TABLET BY MOUTH EVERY DAY sertraline 50 mg tablet 50 mg PO DAILY Qty: 90 2RF Follow-up/Referrals: Feng Albrecht MD [Primary Care Provider] - Time of Disposition: 12:13
== END 2024-09-27 12:35 | disposition home or self-care (01) ==
PROVIDERS: Emergency Provider Emergency Medicine; PCP Family Medicine
DX: T42.8X1A Poisoning by antiparkinsonism drugs and other central muscle-tone depressants, accidental (unintentional), initial encounter (principal); N39.0 Urinary tract infection, site not specified; Z79.899 Other long term (current) drug therapy; R00.1 Bradycardia, unspecified
CPT/HCPCS: 36415; 80053; 80307; 81001; 82077; 83735; 85025; 87086; 93005; 96360; 99283; J7030

== ENCOUNTER 2024-09-29 08:06 | Outpatient (CLI) | payer MEDICARE, OTHER, SELFPAY ==
--- NOTE | ~2024-09-29 | XR_ITS ---
Thoracic spine: Clinical Indication: Back pain AP and lateral views were performed. No fracture is seen. There is normal alignment of the vertebrae. There is multilevel mild degenerati ve disc narrowing. Paravertebral soft tissues appear normal. Impression: Multilevel mild degenerative disc narrowing. Reviewed, dictated and finalized at [facility]. Impression: Multilevel mild degenerative disc narrowing.
--- NOTE | ~2024-09-29 | XR_ITS ---
Lumbosacral Spine: AP and lateral views Clinical History: Pain Findings: The normal lordotic curve is maintained. The vertebral bodies and posterior elements are i ntact. There are mild to moderate facet joint degenerative changes. There is minimal degenerative dis c narrowing. The sacroiliac joints are normally outlined. Impression: Mild degenerative spondylosis overall, as above. Reviewed, dictated and finalized at location . Impression: Mild degenerative spondylosis overall, as above.
--- OUTSIDE RECORDS SUMMARY | 2024-09-29 08:12 | XMS_ITS | Continuity of Care Document ---
Author Organization [facility] Address [address] [place] [address] Phone Care Team Providers Care Food Service Cashier Name Role Phone Kelli MCKEON, [facility] Unavailable Unavai lable Allergies, Adverse Reactions, [...] Diagnoses Date Provider Providers Copied on Encounter [facility], [address] [place] [address], [id number], [place] tel:[phone] [facility] No Information 5 Jona Montalvo. [address] [place] [address], [address], [place], [place], [id number], [place]. tel:[phone] [facility], [address] [place] [address] [address], [place], [place], [id number], [place] tel:[phone] [facility] No Information 4 Jona Montalvo. [address] [place] [address], [address], [place], [place], [id number], [place]. tel:[phone] [facility], [address] [place] [address] [address], [place], [place], [id number], [place] tel:[phone] [facility] No Information 4 [facility] juan [facility]. [address] [place] [address], [address], [place], [place], [id number], [place]. tel:[phone] Office/outpa tient visit,[facility], [facility], [address] [place] [address], [id number], [place] tel:[phone] [facility] ref on lexapro (chief complaint)Anx iety (chief complaint)Dep ression (chief complaint) AnxietyBreas t cancer screening 4 [facility]. [address] [place] [address], [address], [place], [place], [id number], [place]. tel:[phone] Office/outpa tient visit,[facility], [facility], [address] [place] [address], [id number], [place] tel:[phone] [facility] neck stiffnes x 1mth (chief complaint) DJD (degenerativ e joint disease) of cervical spineCervica l radiculopath yOTH SPECIFIED EXAM 4 Dacus Garcíaa. [address], [address], [place], [place], [id number], [place]. tel:[phone] Preventive checkup, est,40-64 yrs [facility], [address] [place] [address], [id number], [place] tel:[phone] [facility] preventive exam (chief complaint) Well woman exam with routine gynecologica l examCONTUSIO N OF HAND(S)SYMPT FEM CLIMACT STATEBorderl ine high cholesterolW ELL ADULT EXAM Feb- 3 Faina Mercer. [address], [place], [place], [id number], [place]. tel:[phone] Office/outpa tient visit,est, [facility], [address], [place], [place], [id number], [place] tel:[phone] [facility] dizziness (chief complaint) BPPV (benign paroxysmal positional vertigo) 3 Faina Mercer. [address], [place], [place], [id number], [place]. tel:[phone] Office/outpa tient visit,est, [facility], [address], [place], [place], [id number], [place] tel:[phone] [facility] Tiredness (chief complaint) FATIGUE 3 Faina Mercer. [address], [place], [place], [id number], [place]. tel:[phone] Office/outpa tient visit,est, [facility], [address], [place], [place], [id number], [place] tel:[phone] [facility] Musculoskelet al Pain (chief complaint) Contusion of hand, rightAbrasio n of right kneeFall 3 Faina Mercer. [address], [place], [place], [id number], [place]. tel:[phone] Office/outpa tient visit,est, [facility], [address], [place], [place], [id number], [place] tel:[phone] [facility] cough/fatigue /nasal congestion (chief complaint) BronchitisHi story of mononucleosi s 2 Faina Mercer. [address], [place], [place], [id number], [place]. tel:[phone] Office/outpa tient visit,est, [facility], [address], [place], [place], [id number], [place] tel:[phone] [facility] earache (chief complaint)lef t breast air bubble (chief complaint) Allergic rhinitisS/P breast implant, saline 2 Zahirpour Tannsamm. [address], [place], [place], [id number], [place]. tel:[phone] Office/outpa tient visit,est, [facility], [address], [place], [place], [id number], [place] tel:[phone] [facility] fatigue (chief complaint) FatigueCold sore 2 Zahirpour Tannaz. [address], [place], [place], [id number], [place]. tel:[phone] [facility], [address], [place], [place], [id number], [place] tel:[phone] [facility] Mole(s) (chief complaint) Atypical nevusCerumen impaction 2 Zahirpour Tannsamm. [address], [place], [place], [id number], [place]. tel:[phone] Office/outpa tient visit,[facility], [facility], [address], [place], [place], [id number], [place] tel:[phone] [facility] cold symptoms (chief complaint) Bronchitis 2 Zahirpour Tannaz. [address], [place], [place], [id number], [place]. tel:[phone] Preventive checkup, new,40-64 yrs [facility], [address], [place], [place], [id number], [place] tel:[phone] [facility] preventive exam (chief complaint) SCREEN MALIG NEOP-COLONWe ll woman exam with routine gynecologica l examVisit for screening mammogramFam libby history of colon cancerAnxiet y 201 2 Faina Mercer. [address], [place], [place], [id number], [place]. tel:[phone] Family History Family Member Type Diagnosis Age At Onset Mother Problem (finding) Mother Problem (finding) Cancer -colon (Cause Of ) Mother Problem (finding) alcoholism Payers Payer name Insurance type Covered constitution party ID Authoriza tion(s) [employer] [place] BL [id number] Social History Type Description Quantity Date Captured Comments Alcohol Use Details Unknown Caffeine Use Details Unknown Tobacco Use Status No Information Smoking Status No Information Sex Female Chief Complaint And Reason For Visit No Information Reason For Referral Reason For Referral No Information History Of Present Illness Encounter Date Complaint History Of Prese nt Illness ref on lexapro ref on lexapro (comments) Godwin nt 58-year-old [...] she will have to do it in [place]. Her recent LDL of the systems coordinator that she saw was 139 which is quite a bit better.She reports today that this will be her last visit, she is retired, sold her home locally and will be relocating to [place]. She has no history of tobacco use, alcohol or drug use. Needing a 90 day refill of her Lexapro due to the move, she has the [employer] PBM. Depression Anxiety neck stiffnes x 1mth pt [...] materials given to patient. Related to Anxiety pt referral Related to Cervi lorin radiculopathy alternate heat and ice Related t o Cervical radiculopathy meds as discussed Related to Cer vical radiculopathy advise if pain or numbness worse ns Related to DJD (degenerative joint disease) of cervical spine meds as directed Related to DJD (degenerative joint disease) of cervical spine Rest Ice Compression Related to DJD (degenerative joint disease) of cervical spine avoid rapid movement s. update me in [...]
--- OUTSIDE RECORDS SUMMARY | 2024-09-29 08:12 | XMS_ITS | Continuity of Care Document ---
Author Organization [facility] Address [address] [place] [address] Care Team Providers Care Community Health Education Coordinator Name Role Phone Chadd Walsh MD Unavailable [...] Encounter Offic/Outpt E&M Estab Mod-Hi 25 Min [facility], [id number], [place], [place], [id number], [place] [address] No Information Nico Florentino. [address] , [address], [place], [place], [id number], [place]. tel:[phone] Family History Family Member Type Diagnosis Age At Onset No Information Payers Payer name Insurance type Covered republican ID Authoriza tion(s) [facility] [id number] Social History Type Description Quantity Date Captured [...]
--- OUTSIDE RECORDS SUMMARY | 2024-09-29 08:12 | XMS_ITS | Clinical Summary ---
Author Organization [facility] [address] [facility] Address [address] [place] [phone] Care Team Providers Care Sewer Inspector Name Role Phone Feng Albrecht MD Primary Care Provider Jaspreet Edmonds MD Unavailable [phone] Allergies Active Allergy Reactions Criticality Noted [...] Edmonds. Assessment & Plan (07/19/2023 12:46 PM PRODUCE WEIGHER): 04/2022 right hand/wrist US revealed mild-mod synovial [...] time. Assessment & Plan (07/01/2022 1:09 PM PRODUCE WEIGHER): 04/2022 right hand/wrist US revealed mild-mod synovial [...] Edmonds. Assessment & Plan (05/01/2022 12:33 PM PRODUCE WEIGHER): Continues to have foot pain since last [...] Vaccine Completed 08/05/2020, 05/15, 04/13/2016 Insurance MEDICARE [facility] [place] [id number] Care Teams Sewer Inspector Relationship Specialty Start Date End Date Feng Albrecht MD [address] [facility] [address] [place] [address] PCP - General Family Medicine 10/07/21 Jaspreet Edmonds MD [address] [place] [address] Consulting Physician Rheumatology 10/07/21
--- OUTSIDE RECORDS SUMMARY | 2024-09-29 08:12 | XMS_ITS | Referral Summary ---
Author Organization [facility] [address] [facility] Address [address] [place] [id number] Care Team Providers Care Pressure Control Supervisor Name Role Phone Feng Albrecht MD Primary Care Provider Jaspreet Edmonds MD Unavailable [phone] Allergies Active Allergy Reactions Criticality Noted [...] Edmonds. Assessment & Plan (07/19/2023 12:46 PM COMMUNICATIONS SCIENTIST): 04/2022 right hand/wrist US revealed mild-mod synovial [...] time. Assessment & Plan (07/01/2022 1:09 PM COMMUNICATIONS SCIENTIST): 04/2022 right hand/wrist US revealed mild-mod synovial [...] Edmonds. Assessment & Plan (05/01/2022 12:33 PM COMMUNICATIONS SCIENTIST): Continues to have foot pain since last [...] of Treatment Not on file Insurance MEDICARE [facility] Care Teams Pressure Control Supervisor Relationship Specialty Start Date End Date Feng Albrecht MD [address] [place] [address] PCP - General Family Medicine 10/07/21 Jaspreet Edmonds MD [address] [place] [address] Consulting Physician Rheumatology 10/07/21
== END 2024-09-29 08:07 | disposition home or self-care (01) ==
PROVIDERS: PCP Family Medicine; Visit Provider Physician Assistant
DX: M47.896 Other spondylosis, lumbar region (principal); M51.34 Other intervertebral disc degeneration, thoracic region
CPT/HCPCS: 72072; 72100

== ENCOUNTER 2024-12-21 09:03 | Outpatient (CLI) | payer MEDICARE, OTHER, SELFPAY ==
--- NOTE | ~2024-12-21 | XR_ITS ---
EXAM/ PROCEDURE: XR hand LT 2V - 12/21/2024 9:20 CDT HISTORY: 69 years old Female with Polyarthralgia COMPARISON: None available TECHNIQUE: Two view(s) FINDINGS/ IMPRESSION: There are no fractures or dislocations.Joint spaces are within normal limits. Reviewed, dictated and finalized at location A.
--- NOTE | ~2024-12-21 | XR_ITS ---
EXAM/ PROCEDURE: XR hand RT 2V - 12/21/2024 9:20 CDT HISTORY: 69 years old Female with Polyarthralgia COMPARISON: None available TECHNIQUE: Two view(s) FINDINGS/ IMPRESSION: There are no fractures or dislocations.Joint space narrowing, subchondral sclerosis, subchondral cyst formation and osteophyte formation, compatible with mild osteoarthritis. Reviewed, dictated and finalized at location A.
--- OUTSIDE RECORDS SUMMARY | 2024-12-21 09:21 | XMS_ITS | Referral Summary ---
Author Organization [facility] [address] [facility] Address [address] [place] [address] Care Team Providers Care Shade Maker Name Role Phone Feng Albrecht MD Primary Care Provider Jaspreet Edmonds MD Unavailable [phone] Encounters Date Type Department Care Team Description 12/20/2024 1:30 PM CDT Office Visit [facility] [address] [place] [phone] Madyson Buck PA Polyarthralgia (Primary Dx) from Last 3 Months Allergies Active Allergy Reactions Criticality Noted Date Comments Penicillins Hives Medium 11/11/2021 Sulfa (Sulfonamide Antibiotics) Hives Medium 10/14 Medications atorvastatin (LIPITOR) 10 mg tablet Take 10 mg by mouth daily 2 Active fluticasone propionate (FLONASE) 50 mcg/actuation nasal spray 2 sprays daily 2 Active sertraline (ZOLOFT) 50 mg tablet Take 50 mg by mouth daily Active lysine 1,000 mg tablet Take by mouth Active turmeric root extract 500 mg capsule Take by mouth Active hydroxychloroq uine (PLAQUENIL) 200 mg tablet Take 2 tablets (400 mg total) by mouth daily 60 tablet 2 4 12/21/19 25 Discontinued Active Problems Problem Noted Date Diagnosed Date [...] of the 3rd PIPJ Assessment & Plan (12/20/2024 3:54 PM CDT): Remains off HCQ. Reports continued pain within her hands and feet. Pain within the hands is present in the AM but worse by the evening with intermittent swelling - unable to oppose her thumb and 5th finger at times due to swelling. Foot pain improves with supportive shoes but finds her left ankle will appear swollen at times. There is questionable fullness of the left 2nd MCP/2-3rd PIP joints on exam with several mildly tender PIP/MCP joints of the bilateral hands. Symptoms are more concerning for osteoarthritis than an inflammatory arthritis. Will recheck basic labs today including another RA panel as she has had a continued low titer RF in the past. Will order hand XRs to evaluate for any signs of inflammation and call with results. Discussed starting treatment with low dose meloxicam and she was amenable to the plan. Provided exercise handouts to address her ITband pain. To return in 4 weeks for re-evaluation. Seen with Dr. Edmonds. Assessment & Plan (03/29/2024 12:24 PM CDT): [...] Edmonds. Assessment & Plan (07/19/2023 12:[address] SUPERVISOR): 04/2022 right hand/wrist US revealed mild-mod synovial [...] time. Assessment & Plan (07/01/2022 1:[address] SUPERVISOR): 04/2022 right hand/wrist US revealed mild-mod synovial [...] Edmonds. Assessment & Plan (05/01/2022 12:[address] SUPERVISOR): Continues to have foot pain since last [...] Sign Reading Time Taken Comments Blood Pressure 138/88 12/20/2024 1:19 PM CDT Pulse 72 12/20/2024 1:19 PM CDT Temperature - - Respiratory Rate - - Oxygen Saturation 97% 12/20/2024 1:19 PM CDT Inhaled Oxygen Concentration - - Weight 69 kg (152 lb 3.2 oz) 12/20/2024 1:19 PM CDT Height 158.8 cm (5' 2.5) 12/20/2024 1:19 PM CDT Body Mass Index 27.39 12/20/2024 1:19 PM CDT Plan of Treatment Not on file Insurance MEDICARE [facility] Care Teams Shade Maker Relationship Specialty Start Date End Date Feng Albrecht MD [address] [place] [address] PCP - General Family Medicine 10/07/21 Jaspreet Edmonds MD [address] [place] [address] Consulting Physician Rheumatology 10/07/21
--- OUTSIDE RECORDS SUMMARY | 2024-12-21 09:21 | XMS_ITS | Encounter Summary ---
Author Organization [facility] Address [address] [place] [address] Phone Care Team Providers Care Pear Picker Name Role Phone Feng Albrecht MD Primary Care Provider Jaspreet Edmonds MD Unavailable [phone] Reason for Referral * Diagnostic Imaging (Routine) - Authorized Specialty Diagnoses / Procedures Referred By Contac t Referred To Contact Diagnoses Polyarthralgia Procedures XR Hand Left 2 Views Madyson uBck PA [address] [place] [address] Phone: tel: fax: External Order Referral ID Status Reason Start Date Expiration Date V isits Requested Visits Authorized [id number] Authorized 12/20/2024 01/19/2026 1 1 * Diagnostic Imaging (Routine) - Authorized Specialty Diagnoses / Procedures Referred By Contac remigio Referred To Contact Diagnoses Polyarthralgia Procedures XR Hand Right 2 Views Madyson Buck PA [address] [place] [address] Phone: tel: fax: External Order Referral ID Status Reason Start Date Expiration Date V isits Requested Visits Authorized [id number] Authorized 12/20/2024 01/19/2026 1 1 Encounter Details Date Type Department Care Team (Latest Contact Info) Description 12/20/2024 1:30 PM CDT Office Visit [facility] [address] [place] [id number] Madyson Buck PA [address] [place] [address] Polyarthralgia (Primary Dx) Social History Tobacco Use Types Packs/Day Years Used Date Smoking Tobacco: Never Assessed Comments Unknown Sex and Gender Information Value Date Recorded Sex Assigned at Not on file Legal Sex Female 9:06 AM CDT Gender Identity Not on file Sexual Orientation Not on file documented as of this encounter Last Filed Vital Signs Vital Sign Reading [...] Mass Index 27.39 12/20/2024 1:19 PM CDT documented in this encounter Miscellaneous Notes * Assessment & Plan Note - Madyson Buck PA - 12/20/2024 3:53 PM CDTAssociated Problem(s): Polyarthralgia Remains off HCQ. Reports continued pain within her hands and feet. Pain within the hands is presentin the AM but worse by the evening [...] to the plan. Provided exercise handouts to addressher ITband pain. To return in 4 weeks for re-evaluation. Seen with Dr. Edmonds. documented in this encounter Plan of Treatment Scheduled Orders Name Type Priority Associated Diagnoses Order Schedule CBC with auto differential Lab Routine Polyarthralgia Expected: 12/20/2024, Expires: 12/20/2025 Comprehensive metabolic panel Lab Routine Polyarthralgia Expected: 12/20/2024, Expires: 12/20/2025 Erythrocyte sedimentation rate Lab Routine Polyarthralgia Expected: 12/20/2024, Expires: 12/20/2025 CRP (acute phase) Lab Routine Polyarthralgia Expected: 12/20/2024, Expires: 12/20/2025 Rheumatoid arthritis diagnostic panel IdentRA with 14.3.3 eta Lab Routine Polyarthralgia Expected: 12/20/2024, Expires: 12/20/2025 XR Hand Right 2 Views Imaging Schedule R outine, Read Routine (OP Routine) Polyarthralgia Expected: 12/20/2024, Expires: 12/20/2025 XR Hand Left 2 Views Imaging Schedule Ro utine, Read Routine (OP Routine) Polyarthralgia Expected: 12/20/2024, Expires: 12/20/2025 documented as of this encounter Visit Diagnoses Diagnosis Polyarthralgia- Primary Pain in joint, multiple sites documented in this encounter Discontinued Medications Medication Sig Discontinue Reason Start Date End Da te hydroxychloroquine (PLAQUENIL) 200 mg tablet Take 2 tablets (400 mg total) by mouth daily 07/30/2023 12/20/2024 documented as of this encounter Care Teams Pear Picker Relationship Specialty Start Date End Date Feng Albrecht MD [address] [place] [address] PCP - General Family Medicine 10/07/21 Jaspreet Edmonds MD [address] [place] [address] Consulting Physician Rheumatology 10/07/21 documented as of this encounter
--- OUTSIDE RECORDS SUMMARY | 2024-12-21 09:21 | XMS_ITS | Continuity of Care Document ---
Author Organization [facility] Address [address] [place] [address] Care Team Providers Care Wood Boring Machine Operator Name Role Phone Chadd Walsh MD [...] Encounter Offic/Outpt E&M Estab Mod-Hi 25 Min [facility], [facility] [id number], [place], [place], [id number], [place] [address] No Information Nico Florentino. [address] [facility] , [address], [place], [place], [id number], [place]. tel:[phone] Family History Family Member Type Diagnosis Age At Onset No Information Payers Payer name Insurance type Covered constitution party ID Authoriza tion(s) [facility] [id number] Social History Type Description Quantity Date Captured [...]
--- OUTSIDE RECORDS SUMMARY | 2024-12-21 09:21 | XMS_ITS | Continuity of Care Document ---
Author Organization [facility] Address [address] [facility] [address] [place] [address] Phone Care Team Providers Care Chair Installer Name Role Phone Kelli MCKEON, [facility] Unavailable Unavai lable Allergies, Adverse Reactions, [...] Diagnoses Date Provider Providers Copied on Encounter [facility], [address] [place] [address], [id number], [place] tel:[phone] [facility] No Information 5 Jona Montalvo. [address] [place] [address], [address], [place], [place], [id number], [place]. tel:[phone] [facility], [address] [place] [address] [address], [place], [place], [id number], [place] tel:[phone] [facility] No Information 4 Jona Montalvo. [address] [place] [address], [address], [place], [place], [id number], [place]. tel:[phone] [facility], [address] [place] [address] [address], [place], [place], [id number], [place] tel:[phone] [facility] No Information 4 [facility]an [facility]. [address] [place] [address], [address], [place], [place], [id number], [place]. tel:[phone] [facility], [address] [place] [address], [id number], [place] tel:[phone] [facility] ref on lexapro (chief complaint)Anx iety (chief complaint)Dep ression (chief complaint) AnxietyBreas t cancer screening 4 [facility]. [address] [place] [address], [address], [place], [place], [id number], [place]. tel:[phone] [facility]pa [facility], [address] [place] [address], [id number], [place] tel:[phone] [facility] neck stiffnes x 1mth (chief complaint) DJD (degenerativ e joint disease) of cervical spineCervica l radiculopath yOTH SPECIFIED EXAM 4 Dacus Garcíaa. [address], [address], [place], [place], [id number], [place]. tel:[phone] Preventive checkup, est,40-64 yrs [facility], [address] [place] [address], [id number], [place] tel:[phone] [facility] preventive exam (chief complaint) Well woman exam with routine gynecologica l examCONTUSIO N OF HAND(S)SYMPT FEM CLIMACT STATEBorderl ine high cholesterolW ELL ADULT EXAM Feb- 3 Faina Mercer. [address], [place], [place], [id number], [place]. tel:[phone] Office/outpa tient visit,est, [facility], [address], [place], [place], [id number], [place] tel:[phone] [facility] dizziness (chief complaint) BPPV (benign paroxysmal positional vertigo) 3 Faina Mercer. [address], [place], [place], [id number], [place]. tel:[phone] Office/outpa tient visit,est, [facility], [address], [place], [place], [id number], [place] tel:[phone] [facility] Tiredness (chief complaint) FATIGUE 3 Faina Mercer. [address], [place], [place], [id number], [place]. tel:[phone] Office/outpa tient visit,est, [facility], [address], [place], [place], [id number], [place] tel:[phone] [facility] Musculoskelet al Pain (chief complaint) Contusion of hand, rightAbrasio n of right kneeFall 3 Faina Mercer. [address], [place], [place], [id number], [place]. tel:[phone] Office/outpa tient visit,est, [facility], [address], [place], [place], [id number], [place] tel:[phone] [facility] cough/fatigue /nasal congestion (chief complaint) BronchitisHi story of mononucleosi s 2 Faina Mercer. [address], [place], [place], [id number], [place]. tel:[phone] Office/outpa tient visit,est, [facility], [address], [place], [place], [id number], [place] tel:[phone] [facility] earache (chief complaint)lef t breast air bubble (chief complaint) Allergic rhinitisS/P breast implant, saline 2 Zahirpour Tannsamm. [address], [place], [place], [id number], [place]. tel:[phone] Office/outpa tient visit,est, [facility], [address], [place], [place], [id number], [place] tel:[phone] [facility] fatigue (chief complaint) FatigueCold sore 2 Zahirpour Tannaz. [address], [place], [place], [id number], [place]. tel:[phone] [facility], [address], [place], [place], [id number], [place] tel:[phone] [facility] Mole(s) (chief complaint) Atypical nevusCerumen impaction 2 Zahirpour Tannsamm. [address], [place], [place], [id number], [place]. tel:[phone] [facility], [address], [place], [place], [id number], [place] tel:[phone] [facility] cold symptoms (chief complaint) Bronchitis 2 Zahirpour Tannaz. [address], [place], [place], [id number], [place]. tel:[phone] Preventive checkup, new,40-64 yrs [facility], [address], [place], [place], [id number], [place] tel:[phone] [facility] preventive exam (chief complaint) SCREEN MALIG NEOP-COLONWe ll woman exam with routine gynecologica l examVisit for screening mammogramFam libby history of colon cancerAnxiet y 201 2 Faina Mercer. [address], [place], [place], [id number], [place]. tel:[phone] Family History Family Member Type Diagnosis Age At Onset Mother Problem (finding) Mother Problem (finding) Cancer -colon (Cause Of ) Mother Problem (finding) alcoholism Payers Payer name Insurance type Covered alliance party ID Authoriza tion(s) [employer] [place] P[place] [id number] Social History Type Description Quantity Date Captured [...] she will have to do it in [place]. Her recent LDL of the project coordinator rn that she saw was 139 which is quite a bit better.She reports today that this will be her last visit, she is retired, sold her home locally and will be relocating to [place]. She has no history of tobacco use, [...] Related to BPPV (benign paroxysmal positional vertigo) Rx Meclizine 25mg TI D, prn. Avoid alcohol intake. Increase hydration Related to BPPV (benign paroxysmal positional vertigo) RTC if not better or worsening R elated to BPPV (benign paroxysmal positional vertigo) current [...]
--- OUTSIDE RECORDS SUMMARY | 2024-12-21 09:21 | XMS_ITS | Clinical Summary ---
Author Organization [facility] [address] [facility] Address [address] [place] [address] Care Team Providers Care Distance Education Faculty Liaison Name Role Phone Feng Albrecht MD Primary Care Provider Jaspreet Edmonds MD Unavailable [phone] Allergies Active Allergy Reactions Criticality Noted [...] Edmonds. 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 Assessment & Plan (07/01/2022 1:09 PM DEFENCE FORCE SENIOR OFFICER): 04/2022 right hand/wrist US revealed mild-mod synovial [...] Edmonds. Assessment & Plan (05/01/2022 12:33 PM DEFENCE FORCE SENIOR OFFICER): Continues to have foot pain since last [...] in [address] Edmonds. Encounters Date Type Department Care Team Description 12/20/2024 1:30 PM CDT Office Visit [address] [address] Madyson Buck PA Polyarthralgia (Primary Dx) from Last 3 Months Surgical History Surgery Date Site/Laterality Comments SECTION [...] 12/20/2024 1:19 PM CDT Plan of Treatment Health Maintenance Due Date Last Done Comments Breast Cancer Screening-Mammogram 1954 Colon Cancer Screening-Colonoscopy 1954 Depression Screening 1954 Fall Risk Assessment 1954 Hepatitis C Screening 1954 Osteoporosis Screening-Bone Density Scan 1954 DTaP/Tdap/Td Vaccine (1 - Tdap) 1965 Hepatitis B Screening 01/29/1972 Well Visit 65+ 2019 Pneumococcal vaccine 65+ (2 of 2 - PPSV23) 03/08/2020 03/08/2019 Covid-19 Vaccine (3 - 2024-2 5 season) 2024 04/28/2021, 08/22/2020 Influenza Vaccine (#1) 2025 , 03/20/2020, 03/08/2019, Additional history exists Zoster Vaccine Completed 08/05/2020, 05/15, 04/13/[address] [facility] Care Teams Distance Education Faculty Liaison Relationship Specialty Start Date End Date Feng Albrecht MD [address] [facility] [address] [place] [address] PCP - General Family Medicine 10/07/21 Jaspreet Edmonds MD [address] [facility] [place] [address] Consulting Physician Rheumatology 10/07/21
== END 2024-12-21 09:04 | disposition home or self-care (01) ==
PROVIDERS: PCP Family Medicine; Visit Provider Physician Assistant Medical
DX: M25.50 Pain in unspecified joint (principal)
CPT/HCPCS: 73120

== ENCOUNTER 2025-06-04 12:39 | Outpatient (CLI) | payer MEDICARE, OTHER, SELFPAY ==
--- NOTE | ~2025-06-04 | MR_ITS ---
EXAMINATION: MR lumbar spine wo con DATE: 06/04/2025 13:05 INDICATION: Other spondylosis with myelopathy, lumbar region. Low back pain. TECHNIQUE: Magnetic resonance imaging (MRI) of the lumbar spine was performed without intravenous contrast. COMPARISON: None FINDINGS: Alignment is normal. There is mild chronic anterior wedging of T12 and L1 vertebral bodies. Intervertebral disc heights are normal. The distal spinal cord signal intensity is normal. The conus medullaris is at L1. The following disc levels are specifically discussed: L1-L2: There is a central protrusion. There is mild bilateral facet joint osteoarthritis. There is no neural foraminal stenosis. There is mild central canal stenosis. L2-L3: The disc is bulging and has an annular fissure. There is mild bilateral facet joint osteoarthritis. There is mild bilateral neural foraminal stenosis. There is mild central canal stenosis. L3-L4: The disc is bulging and has an annular fissure. There is moderate right and severe left facet joint osteoarthritis. There is mild right and moderate left neural foraminal stenosis. There is mild central canal stenosis. L4-L5: The disc is bulging and has an annular fissure. There is severe bilateral facet joint osteoarthritis. There is moderate right and mild left neural foraminal stenosis. There is mild central canal stenosis. L5-S1: The disc is bulging with superimposed right subarticular zone extrusion with mass effect on the right S1 nerve root in right lateral recess. There is severe bilateral facet joint osteoarthritis. There is mild bilateral neural foraminal stenosis. There is mild central canal stenosis at the midline. There is severe stenosis of right lateral recess. IMPRESSION: 1. Extrusion at L5-S1 with mass effect on the right S1 nerve root in right lateral recess. Otherwise mild lumbar spondylosis. Reviewed, dictated and finalized at location E. CAL GLASS SILVERER IMPRESSION: 1. Extrusion at L5-S1 with mass effect on the right S1 nerve root in right late ral recess. Otherwise mild lumbar spondylosis.
== END 2025-06-04 12:40 | disposition home or self-care (01) ==
LOC: MICIMG 12:40
PROVIDERS: PCP Family Medicine; Visit Provider Family Medicine
DX: M47.16 Other spondylosis with myelopathy, lumbar region (principal); M51.27 Other intervertebral disc displacement, lumbosacral region
CPT/HCPCS: 72148